=== PATIENT | male | born 1975 | race Hispanic/Latino ===

== ENCOUNTER 2017-10-15 07:43 | Inpatient (IN) | payer OTHER ==
[2017-10-15] MEDS ORDERED: Meropenem IV 1 gm in NS 100 ML IVPB STA (08:06)
[2017-10-15] MEDS ORDERED: Vancomycin 1gm in NS 250ml 1 GM/250 ML BAG IVPB STA (08:06)
[2017-10-15] MEDS ORDERED: Clindamycin 150 mg/mL Inj ONE (08:20)
[2017-10-15 08:34] LABS: VENOUS BLOOD GAS BASE EXCESS -3.6 mmol/L (0.0-2.0); VENOUS BLOOD GAS PO2 66 mm/Hg (30-55)
--- NOTE | 2017-10-15 08:42 | ED PDOC ---
Arrival/HPI - General Chief Complaint: Abnormal Skin Integrity Time Seen by Provider: 10/15/17 07:58 Historian: Patient - History of Present Illness Narrative History of Present Illness (Text): 10/15/17 08:20 42 year old male, who denies any significant past medical history, presents to the emergency department as an [place] men on the [place] [employer] the [employer] , complaining worsening left elbow calor, dolor, rubor, and tumor that began 2 days ago. He reports he noticed two red spots on the elbow and over the past 2 days he noticed progressive increase of calor, dolor, rubor, and tumor. Patient was not responding to Ibuprofen, nor one day PO Levofloxacin. Patient eventually developed nausea, fever, chills, and rigors, but denies any chest pain, shortness of breath, vomiting, diarrhea, urinary symptoms, back pain, neck pain, headache, dizziness, or any other complaints. Time/Duration: Other (2 days) Symptom Onset: Gradual Symptom Course: Worsening Activities at Onset: Light Context: Other (Cruise Ship) Past Medical History - Provider Review Nursing Documentation Reviewed: Yes - Infectious Disease Hx of Infectious Diseases: None - Psychiatric Hx Substance Use: No - Surgical History Hx Tonsillectomy: Yes Family/Social History - Physician Review Nursing Documentation Reviewed: Yes Family/Social History: No Known Family HX Smoking Status: Never Smoked Hx Alcohol Use: Yes Frequency of alcohol use: Socially Hx Substance Use: No Allergies/Home Meds Allergies/Adverse Reactions: Allergies No Known Allergies Allergy (Verified 10/15/17 08:05) Home Medications: Home Meds Medication Instructions Recorded Confirmed No Known Home Med 10/15/17 10/15/17 Review of Systems - Physician Review All systems were reviewed & negative as marked: Yes - Review of Systems Constitutional: Fevers, Other (Rigors and chills) Respiratory: absent: SOB Cardiovascular: absent: Chest Pain Gastrointestinal: Nausea. absent: Diarrhea, Vomiting Genitourinary Male: absent: Dysuria, Frequency, Hematuria Musculoskeletal: absent: Back Pain, Neck Pain Skin: Other (Left elbow calor, dolor, rubor, and tumor.) Neurological: absent: Headache, Dizziness Physical Exam Vital Signs Reviewed: Yes Vital Signs Temp Pulse Resp BP Pulse Ox 10/15/17 10:24 98.8 F 108 H 18 101/67 98 10/15/17 09:59 98.1 F 107 H 19 95/58 L 98 10/15/17 08:23 99.0 F 113 H 20 120/71 98 10/15/17 07:53 99.2 F 116 H 20 107/65 98 Temperature: Afebrile Blood Pressure: Normal Pulse: Tachycardic Respiratory Rate: Normal Appearance: Positive for: Well-Appearing, Non-Toxic, Comfortable Pain Distress: None Mental Status: Positive for: Alert and Oriented X 3 - Systems Exam Head: Present: Atraumatic, Normocephalic Pupils: Present: PERRL Extroacular Muscles: Present: EOMI Conjunctiva: Present: Normal Mouth: Present: Moist Mucous Membranes Neck: Present: Normal Range of Motion Respiratory/Chest: Present: Clear to Auscultation, Good Air Exchange. No: Respiratory Distress, Accessory Muscle Use Cardiovascular: Present: Regular Rate and Rhythm, Normal S1, S2. No: Murmurs Abdomen: No: Tenderness, Distention, Peritoneal Signs Back: Present: Normal Inspection Upper Extremity: Present: Tenderness (left elbow tender to touch), Swelling ( Grossly swollen forearm with rubor over forearm extending proximally over elbow , joint, and tricep area. ), Erythema, Neurovascularly Intact, Temperature Abnormalties (Postive relative Calor ), Other (Able to range but can not totally extend elbow). No: Cyanosis, Edema Lower Extremity: Present: Normal Inspection. No: Edema Neurological: Present: GCS=15, CN II-XII Intact, Speech Normal Skin: Present: Warm, Dry, Normal Color. No: Rashes Psychiatric: Present: Alert, Oriented x 3, Normal Insight, Normal Concentration Medical Decision Making ED Course and Treatment: 10/15/17 08:15 Impression: 42 year old male presents complaining of worsening left elbow calor, dolor, rubor, and tumor for the past 2 days. Patient also complaining of nausea, fever , chills, and rigors. Patient is an [place] on [place] [employer] [place]. Plan: -- VBG -- EKG -- Labs -- Chest X-ray -- Cleocin, IV Fluids, Merrem IV, Tylenol, Vancomycin -- Elbow left 2 views x-ray -- Urinalysis -- Duplex Upper extrem vein left US -- Reassess and disposition Progress Notes: 10/15/17 08:[address] Rosa who is aware and agrees with the plan. Accepts patient into his service. Pending lab and radiology work up. 10/15/17 08:59 Duplex Upper extrem vein left US Impression: Negative. 10/15/17 09:51 EKG shows Sinus tachycardia at 112 BPM with no ischemic ST/T segments. No arrhythmogenic intervals. Interpreted by me. - Lab Interpretations Lab Results: 10/15/17 08:10 Lab Results 10/15/17 08:10: pO2 66 H, VBG pH 7.40, VBG pCO2 33.0 L, VBG HCO3 20.4 L, VBG Total CO2 21.4 L, VBG O2 Sat (Calc) 96.3 H, VBG Base Excess -3.6 L, VBG Potassium 4.7, Sodium 135.0, Chloride 104.0, Glucose 143 H, Lactate 3.3 H, FiO2 21.0, Venous Blood Potassium 4.7 10/15/17 08:10: WBC 6.4, RBC 5.23, Hgb 16.5, Hct 46.1, MCV 88.1, MCH 31.5, MCHC 35.8, RDW 13.3, Plt Count 177, MPV 10.2, Gran % 93.3 H, Lymph % (Auto) 2.5 L, [place] % (Auto) 4.2, Eos % (Auto) 0.0 L, Baso % (Auto) 0.0, Gran # 6.00, Lymph # ( Auto) 0.2 L, [place] # (Auto) 0.3, Eos # (Auto) 0.0, Baso # (Auto) 0.00, Neutrophils % (Manual) 93 H, Band Neutrophils % 3 H, Lymphocytes % (Manual) 3 L , Monocytes % (Manual) 1, Platelet Evaluation Normal, Anisocytosis (manual) Slight, ESR 6 I have reviewed the lab results: Yes - RAD Interpretation Radiology Orders: 10/15/17 08:06 CHEST PORTABLE [RAD] Stat 10/15/17 08:11 ELBOW LEFT 3 VIEWS ROUTINE [RAD] Stat 10/15/17 08:12 DUPLEX UPPER EXTRM VEIN LEFT [US] Stat - EKG Interpretation Interpreted by ED Physician: Yes Type: 12 lead EKG - Medication Orders Current Medication Orders: Acetaminophen (Tylenol 325mg Tab) 975 mg PO ONCE PRN PRN Reason: Fever >100.4 F Discontinued Medications Clindamycin Phosphate 600 mg/ (Sodium Chloride) 54 mls @ 108 mls/hr IVPB STAT STA PRN Reason: Protocol Stop: 10/15/17 08:35 Last Admin: 10/15/17 08:25 Dose: 108 mls/hr eMAR Start Stop Document 10/15/17 08:25 OCS (Rec: 10/15/17 08:26 OCS [id number]) Intravenous Solution Start Date 10/15/17 Start Time 08:26 End Date 10/15/17 End time 08:56 Total Infusion Time 30 Lactated Ringer's 2,000 ml/ IV (SUPPLIES) 2,000 mls @ 7,506.06 mls/hr IV ONCE ONE PRN Reason: 60 ML/KG/HR Stop: 10/15/17 08:38 Last Admin: 10/15/17 08:24 Dose: 7,506.06 mls/hr eMAR Start Stop Document 10/15/17 08:24 OCS (Rec: 10/15/17 08:25 OCS [id number]) Intravenous Solution Start Date 10/15/17 Start Time 08:24 Meropenem (Merrem Iv 1 Gm Premix) 100 mls @ 100 mls/hr IVPB STAT STA PRN Reason: Protocol Stop: 10/15/17 09:05 Last Admin: 10/15/17 09:54 Dose: 100 mls/hr eMAR Start Stop Document 10/15/17 09:54 OCS (Rec: 10/15/17 10:00 OCS [id number]) Intravenous Solution Start Date 10/15/17 Start Time 10:00 End Date 10/15/17 End time 11:00 Total Infusion Time 60 Vancomycin HCl (Vancomycin 1gm) 1 gm in 250 mls @ 167 mls/hr IVPB STAT STA PRN Reason: Protocol Stop: 10/15/17 09:35 - Scribe Statement The provider has reviewed the documentation as recorded by the Korin Brown Provider Scribe Attestation: All medical record entries made by the Scribe were at my direction and personally dictated by me. I have reviewed the chart and agree that the record accurately reflects my personal performance of the history, physical exam, medical decision making, and the department course for this patient. I have also personally directed, reviewed, and agree with the discharge instructions and disposition. Disposition/Present on Arrival - Present on Arrival Any Indicators Present on Arrival: No History of DVT/PE: No History of Uncontrolled Diabetes: No Urinary Catheter: No History of Decub. Ulcer: No History Surgical Site Infection Following: None - Disposition Have Diagnosis and Disposition been Completed?: Yes Diagnosis: Cellulitis of left elbow Disposition: HOSPITALIZED Disposition Time: 10:37 Patient Plan: Admission Condition: GUARDED
[2017-10-15 08:43] LABS: GRAN % 93.3 % (50.0-68.0); HEMOGLOBIN 16.5 g/dL (14.0-18.0); LYMPH # 0.2 (1.2-3.4); LYMPH % 2.5 % (22.0-35.0); MEAN CELL VOLUME 88.1 fl (80.0-105.0); MEAN CORPUSCULAR HEMOGLOBIN 31.5 pg (25.0-35.0); MEAN CORPUSCULAR HGB CONC 35.8 g/dl (31.0-37.0); MEAN PLATELET VOLUME 10.2 fl (7.0-11.0); MONO # 0.3 (0.1-0.6); MONO % 4.2 % (1.0-6.0); PLATELET COUNT 177 10^3/uL (120.0-450.0); RBC 5.23 10^6/uL (3.5-6.1); RED CELL DISTRIBUTION WIDTH 13.3 % (11.5-14.5); WHITE BLOOD COUNT 6.4 10^3/ul (4.5-11.0)
[2017-10-15] MEDS ORDERED: Bupivacaine 0.5% Inj(30mL) ONE (09:22)
[2017-10-15 10:00] LABS: ALB/GLOB RATIO 1.3 (1.1-1.8); ALBUMIN 3.4 g/dL (3.0-4.8); ALT/SGPT 40 U/L (7-56); AST/SGOT 22 U/L (17-59); BLOOD UREA NITROGEN 16 mg/dL (7-21); CALCIUM 8.4 mg/dL (8.4-10.5); GFR AFRICAN-AMERICAN > 60; GFR NON-AFRICAN AMERICAN > 60
[2017-10-15 10:02] LABS: INR 1.4 (0.93-1.08); PARTIAL THROMBOPLASTIN TIME 31.4 Seconds (25.1-36.5); PROTHROMBIN TIME 16.2 SECONDS (9.4-12.5)
--- NOTE | 2017-10-15 10:07 | RAD ---
HISTORY: Sepsis Patient COMPARISON: No prior. FINDINGS: LUNGS: No active pulmonary disease. PLEURA: No significant pleural effusion identified, no pneumothorax apparent. CARDIOVASCULAR: Normal. OSSEOUS STRUCTURES: No significant abnormalities. VISUALIZED UPPER ABDOMEN: Normal. OTHER FINDINGS: None. IMPRESSION: No active disease.
[2017-10-15 10:10] LABS: TROPONIN I < 0.01 ng/mL
--- NOTE | 2017-10-15 10:18 | RAD ---
PROCEDURE: Radiographs of the left elbow. HISTORY: soft tissue infection COMPARISON: No prior. FINDINGS: BONES: Normal. No fracture. JOINTS: Normal. No osteoarthritis. SOFT TISSUES: Normal. JOINT EFFUSION: None. OTHER FINDINGS: None IMPRESSION: Unremarkable radiographs of the left elbow.
[2017-10-15 10:31] LABS: BAND 3 % (0-2); LYMPHOCYTE 3 % (22.0-35.0); MONOCYTE 1 % (1.0-6.0); NEUTROPHIL 93 % (50.0-70.0); PLATELET ESTIMATE NORMAL (NORMAL)
[2017-10-15 10:32] LABS: ANISOCYTOSIS SLIGHT
--- NOTE | 2017-10-15 10:49 | US ---
PROCEDURE: Ultrasound examinations soft tissue, limited HISTORY: lt elbow pls; ext of cellultis r/o fld collection COMPARISON: Not available TECHNIQUE: Targeted examination of the left upper extremity soft tissues was performed about the elbow and distal upper arm, circumferentially. FINDINGS: There is no solid mass or fluid collection identified. Subcutaneous edema is identified common nonspecific. IMPRESSION: No mass or fluid collection identified.
--- NOTE | 2017-10-15 11:35 | HP ---
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 He is here in our emergency room. He was supposed to go home, but he is now in the ER with a very bad left elbow quite swollen, decreased range of motion. It started off with two red spots, could have been insect bite. He was given IV antibiotics, both Rocephin and levofloxacin, but I do not think it did much to red, inflamed. It is a mild pain, not bad. He is uncomfortable and he needs to be put in the hospital for this. PAST MEDICAL HISTORY: He does not have any. PAST SURGICAL HISTORY: He has wisdom tooth taken out. SOCIAL HISTORY: He does drink alcohol. No smoking. No recreational drugs. Does drink coffee. FAMILY HISTORY: No major family medical history to discuss. ALLERGIES: HE HAS NO KNOWN DRUG ALLERGIES. MEDICATIONS: Does not take any medications and this is the first time he has been dealing with left elbow issue. REVIEW OF SYSTEMS: No acute vision changes or hearing changes. No sore throat. No neck pain. No chest pain or palpitations. No shortness of breath or cough. No abdominal pain, nausea, vomiting, constipation, or diarrhea. His legs were okay. His left elbow is very swollen, very hot, very red, decreased range of motion. PHYSICAL EXAMINATION: VITAL SIGNS: He has a 99.2 temperature, 116 pulse, 107/65 blood pressure, 20 respiratory rate, 90% O2 sat on room air. HEENT: Head is atraumatic and normocephalic. Throat is dry. NECK: Supple. HEART: Regular rate, LUNGS: Decreased breath sounds, but clear to auscultation. ABDOMEN: Soft. Mildly obese. Nontender. Positive bowel sounds. No guarding and no rebound. No CVA tenderness. EXTREMITIES: No edema. The left elbow though was quite swollen, decreased range of motion, hot to touch, mildly tender to palpation, very red and inflamed. I do not see the 2 dots that he mentioned he had originally, which I think could be spider bite versus insect bites. It looks like the elbow is very infected and I do not want to get septic. He should be admitted to the hospital. He will get clindamycin. He will get Merrem. Add vancomycin and Tylenol. I will consult Infectious Disease and Orthopedics. He is going to be put in the hospital for infected left elbow. Marcel Rosa DO
--- NOTE | 2017-10-15 12:02 | US ---
PROCEDURE: Left upper extremity venous ultrasound HISTORY: Arm pain and swelling. Evaluate for deep venous thrombosis. PHYSICIAN(S): Yuri Dey MD. FINDINGS: The visualized leftinternal jugular vein is sonographically normal and compressible. No evidence of obstruction or thrombus is seen. The visualized segments of the left subclavian vein are patent with normal waveforms. No sonographic evidence of obstruction or thrombosis is seen. The visualized deep venous system of the proximal leftupper extremity is sonographically normal and compressible. IMPRESSION: 1. No sonographic evidence for deep venous thrombosis in the visualized segments of the left upper extremity.
[2017-10-15 12:07] LABS: VENOUS BLOOD GAS BASE EXCESS -2.7 mmol/L (0.0-2.0); VENOUS BLOOD GAS PO2 27 mm/Hg (30-55); VENOUS BLOOD PH 7.36 (7.32-7.43)
[2017-10-15] MEDS: Cefepime 1gm in NS 100ml 1 GM/100 ML BAG IVPB SCH ×3 (12:10→22:30)
[2017-10-15] MEDS: Linezolid 600 mg in D5W 300 ml 600 MG/300 ML BAG IVPB SCH (12:11)
[2017-10-15 12:47] LABS: URINE BILIRUBIN NEGATIVE (NEGATIVE); URINE BLOOD NEGATIVE (NEGATIVE); URINE GLUCOSE (UA) NEGATIVE (NEGATIVE); URINE LEUKOCYTE ESTERASE NEGATIVE Leu/uL (NEGATIVE); URINE PROTEIN 30 mg/dL (<30 mg/dL)
[2017-10-15 12:52] LABS: URINE APPEARANCE CLEAR (CLEAR); URINE COLOR DARK YELLOW (YELLOW)
[2017-10-15 13:01] LABS: URINE EPITHELIAL CELLS 0 - 2 /hpf (0-5); URINE RBC 0 - 2 /hpf (0-2)
[2017-10-15 13:02] LABS: URINE BACTERIA FEW (NEG)
[2017-10-15 16:52] VITALS: BMI 36.3
[2017-10-15] MEDS ORDERED: Pneumococcal 23-Valent Vaccine IM ONE (16:52)
--- NOTE | 2017-10-15 20:59 | CON ---
DATE: 10/15/2017 ORTHOPEDIC CONSULTATION The patient is a 42-year-old male seen in the Emergency Room with acutely swollen left elbow at the olecranon bursa. History is that he was bitten by two bugs while on a cruise ship coming back to [place]. This happened two days ago and the elbow started to have increasing pain and swelling along the olecranon bursa. X-rays were within normal limits of the left elbow and no appearance of fluid in the elbow joint, looks like it is in the olecranon bursa. So, I prepped and draped the left elbow, numbed it up with some Marcaine in the dermis and put an 18 gauge needle in over the fluctuant portion and got out some purulent material about 2 mL, which I sent to the lab for culture and I irrigated out with normal saline to dilute the purulent material that was difficult to take out even though it was a 18 gauge needle so I put a dressing on and I will follow the culture and the elbow status to make sure it does not have to be opened. If this infection is not controlled with antibiotics, we may have to do an I&D, but it looks like we could get through once the culture shows what is the sensitive antibiotic. He is being admitted for IV antibiotics. He is on clindamycin right now and was put on, in the Emergency Room, vancomycin and we will get an ID consult. FINAL DIAGNOSES: Purulent infection of left olecranon bursa with cellulitis and we did aspiration of the olecranon bursa to remove the purulent material and irrigated it with normal saline. Octaviano Paulson DO MARÍA
[2017-10-16] MEDS: Cefepime 1gm in NS 100ml 1 GM/100 ML BAG IVPB SCH (05:23)
[2017-10-16] MEDS ORDERED: Meropenem IV 1 gm in NS 50 ML IVPB SCH ×3 (08:15→14:00)
[2017-10-16 08:34] LABS: HEMOGLOBIN 17.2 g/dL (14.0-18.0); MEAN CELL VOLUME 89.2 fl (80.0-105.0); MEAN CORPUSCULAR HEMOGLOBIN 31.4 pg (25.0-35.0); MEAN CORPUSCULAR HGB CONC 35.2 g/dl (31.0-37.0); MEAN PLATELET VOLUME 9.8 fl (7.0-11.0); RBC 5.48 10^6/uL (3.5-6.1); RED CELL DISTRIBUTION WIDTH 13.7 % (11.5-14.5); WHITE BLOOD COUNT 12.5 10^3/ul (4.5-11.0)
[2017-10-16] MEDS ORDERED: Lactated Ringer's 1,000 ML IV SCH (08:45)
[2017-10-16 08:50] LABS: ALB/GLOB RATIO 1.3 (1.1-1.8); ALBUMIN 3.9 g/dL (3.0-4.8); ALT/SGPT 52 U/L (7-56); AST/SGOT 36 U/L (17-59); BLOOD UREA NITROGEN 14 mg/dL (7-21); CALCIUM 8.7 mg/dL (8.4-10.5); GFR AFRICAN-AMERICAN > 60; GFR NON-AFRICAN AMERICAN > 60
[2017-10-16] MEDS ORDERED: Iohexol 350 MG/100 ML VIAL ONE (08:52)
--- NOTE | 2017-10-16 09:01 | CP.PCM.CON ---
History of Present Illness - History of Present Illness History of Present Illness: General Surgery: Dr Fitzpatrick Re: r/o necrotizing fasciitis Pt is a 42M who presented with left arm pain/swelling since tuesday. Pt reports he was recently on a cruise which traveled from [place] to the [facility] and back. On tuesday, the day of his return, he was packing when he noticed pain in his left elbow and noted it to be swollen. At that time he identified two small punctate lesions on his elbow. The arm began to get progressively more swollen and tuesday he night pt reports he was feeling fevers and chills. He was seen by the on board physician who sent him to the [facility] for further evaluation. Pt was seen by orthopaedics yesterday who aspirated the left elbow which pt reports provided some relief. However overnight the erythema and swelling has now extended to the brachial portion of his left arm. Pt reports he continues to feel feverish and now feels lethargic. His qwaxv-ic-suovme has significantly decreased as well. PMH: denies PSH: denies Review of Systems - Review of Systems Systems not reviewed;Unavailable: Acuity of Condition (per hpi) All systems: reviewed and no additional remarkable complaints except Past Patient History - Infectious Disease Hx of Infectious Diseases: None - Past Social History Smoking Status: Never Smoked - CARDIAC Hx Cardiac Disorders: No - PULMONARY Hx Respiratory Disorders: No - NEUROLOGICAL Hx Neurological Disorder: No - HEENT Hx HEENT Problems: Yes (TONSILLECTOMY) - RENAL Hx Chronic Kidney Disease: No - ENDOCRINE/METABOLIC Hx Endocrine Disorders: No - HEMATOLOGICAL/ONCOLOGICAL Hx Blood Disorders: No - INTEGUMENTARY Hx Dermatological Problems: Yes Other/Comment: 10-15-17 LEFT ELBOW CELLULITIS-INSECT BITE?- NOTICED 2 RED SPOTS TO ELBOW,STARTED ITCHING,THEN SWELLED UP + 3 EDEMA,ERYTHEMATOUS AREA,ELBOW REDDENED. PAIN. - MUSCULOSKELETAL/RHEUMATOLOGICAL Hx Musculoskeletal Disorders: No Hx Falls: No - GASTROINTESTINAL Hx Gastrointestinal Disorders: No - GENITOURINARY/GYNECOLOGICAL Hx Genitourinary Disorders: No - PSYCHIATRIC Hx Psychophysiologic Disorder: Yes (SOCIALLY DRINKS ALCOHOL) Hx Substance Use: No - SURGICAL HISTORY Hx Surgeries: Yes (TONSILLECTOMY) Meds Allergies/Adverse Reactions: Allergies Allergy/AdvReac Type Severity Reaction Status Date / Time No Known Allergies Allergy Verified 10/15/17 14:31 - Medications Medications: Current Medications Acetaminophen (Tylenol 325mg Tab) 975 mg PO ONCE PRN PRN Reason: Fever >100.4 F Last Admin: 10/15/17 16:44 Dose: 975 mg Linezolid (Zyvox 600mg/300ml D5w) 600 mg in 300 mls @ 200 mls/hr IVPB Q12 SANTOS PRN Reason: Protocol Stop: 10/22/17 11:11 Last Admin: 10/15/17 12:11 Dose: 200 mls/hr Meropenem (Merrem Iv 1 Gm Premix) 50 mls @ 100 mls/hr IVPB Q8 SANTOS PRN Reason: Protocol Meropenem (Merrem Iv 1 Gm Premix) 50 mls @ 100 mls/hr IVPB Q8 SANTOS PRN Reason: Protocol Stop: 10/17/17 06:29 Lactated Ringer's (Lactated Ringer's) 1,000 mls @ 100 mls/hr IV .Q10H SANTOS Physical Exam - Constitutional Appears: Non-toxic, No Acute Distress - Head Exam Head Exam: NORMOCEPHALIC - Eye Exam Eye Exam: Normal appearance - ENT Exam ENT Exam: Mucous Membranes Dry - Respiratory Exam Respiratory Exam: absent: Accessory Muscle Use, Respiratory Distress - Cardiovascular Exam Cardiovascular Exam: Tachycardia, REGULAR RHYTHM - GI/Abdominal Exam GI & Abdominal Exam: Soft. absent: Tenderness - Extremities Exam Additional comments: LUE is erythematous, warm to touch, edematous with significant blanching, extends to upper portion of the biceps and down to the hands no crepitus noted Results - Vital Signs Recent Vital Signs: Last Vital Signs Temp 99.4 F 10/16/17 06:00 Pulse 107 H 10/16/17 06:00 Resp 19 10/16/17 06:00 BP 111/73 10/16/17 06:00 Pulse Ox 100 10/16/17 06:00 - Labs Result Diagrams: 10/16/17 08:00 10/16/17 08:00 Labs: Laboratory Results - last 24 hr 10/15/17 10/15/17 10/15/17 09:30 09:40 09:40 WBC RBC Hgb Hct MCV MCH MCHC RDW Plt Count MPV PT 16.2 H INR 1.40 H APTT 31.4 pO2 VBG pH VBG pCO2 VBG HCO3 VBG Total CO2 VBG O2 Sat (Calc) VBG Base Excess VBG Potassium Glucose Lactate FiO2 Sodium 137 Potassium 3.6 Chloride 106 Carbon Dioxide 18 L Anion Gap 16 BUN 16 Creatinine 0.9 Est GFR ( Amer) > 60 Est GFR (Non-Af Amer) > 60 Random Glucose 129 H Calcium 8.4 Phosphorus 2.6 Magnesium 1.3 L Total Bilirubin 1.8 H AST 22 ALT 40 Alkaline Phosphatase 30 L Troponin I < 0.01 C-React Prot High Sens > 15.00 H Total Protein 5.8 Albumin 3.4 Globulin 2.5 Albumin/Globulin Ratio 1.3 Venous Blood Potassium Urine Color Urine Appearance Urine pH Ur Specific [place] Urine Protein Urine Glucose (UA) Urine Ketones Urine Blood Urine Nitrate Urine Bilirubin Urine Urobilinogen Ur Leukocyte Esterase Urine RBC Urine WBC Ur Epithelial Cells Urine Bacteria 10/15/17 10/15/17 10/16/17 12:02 12:40 08:00 WBC 12.5 H D RBC 5.48 Hgb 17.2 Hct 48.9 MCV 89.2 MCH 31.4 MCHC 35.2 RDW 13.7 Plt Count 113 L MPV 9.8 PT INR APTT pO2 27 L VBG pH 7.36 VBG pCO2 40.0 VBG HCO3 22.6 VBG Total CO2 23.8 VBG O2 Sat (Calc) 59.2 VBG Base Excess -2.7 L VBG Potassium 3.6 Glucose 139 H Lactate 3.4 H FiO2 21.0 Sodium 136.0 Potassium Chloride 103.0 Carbon Dioxide Anion Gap BUN Creatinine Est GFR ( Amer) Est GFR (Non-Af Amer) Random Glucose Calcium Phosphorus Magnesium Total Bilirubin AST ALT Alkaline Phosphatase Troponin I C-React Prot High Sens Total Protein Albumin Globulin Albumin/Globulin Ratio Venous Blood Potassium 3.6 Urine Color Dark yellow Urine Appearance Clear Urine pH 6.0 Ur Specific [place] 1.020 Urine Protein 30 H Urine Glucose (UA) Negative Urine Ketones Trace H Urine Blood Negative Urine Nitrate Positive H Urine Bilirubin Negative Urine Urobilinogen 1.0 H Ur Leukocyte Esterase Negative Urine RBC 0 - 2 Urine WBC 1 - 3 Ur Epithelial Cells 0 - 2 Urine Bacteria Few 10/16/17 08:00 WBC RBC Hgb Hct MCV MCH MCHC RDW Plt Count MPV PT INR APTT pO2 VBG pH VBG pCO2 VBG HCO3 VBG Total CO2 VBG O2 Sat (Calc) VBG Base Excess VBG Potassium Glucose Lactate FiO2 Sodium 138 Potassium 4.0 Chloride 102 Carbon Dioxide 22 Anion Gap 18 BUN 14 Creatinine 0.9 Est GFR ( Amer) > 60 Est GFR (Non-Af Amer) > 60 Random Glucose 133 H Calcium 8.7 Phosphorus Magnesium Total Bilirubin 1.8 H AST 36 ALT 52 Alkaline Phosphatase 40 Troponin I C-React Prot High Sens Total Protein 6.9 Albumin 3.9 Globulin 3.0 Albumin/Globulin Ratio 1.3 Venous Blood Potassium Urine Color Urine Appearance Urine pH Ur Specific [place] Urine Protein Urine Glucose (UA) Urine Ketones Urine Blood Urine Nitrate Urine Bilirubin Urine Urobilinogen Ur Leukocyte Esterase Urine RBC Urine WBC Ur Epithelial Cells Urine Bacteria Assessment & Plan - Assessment and Plan (Free Text) Assessment: 42M with LUE cellulitis, possibly s/p spider bite; r/o nec fasc Plan: NPO in case debridement is needed will start on IV fluids stat CT scan of LUE will f/u results and d/w Dr Amari Rdz, PGY3
--- NOTE | 2017-10-16 09:11 | CARD ---
APPROVED REPORT EKG Measurement Heart [id number] ME [id number] <Conclusion> Sinus tachycardia Nonspecific ST abnormality Mild ST elevation 2,3,F Small q waves 3,F Cannot exclude IMI, age unknown No prior ECG.
--- NOTE | 2017-10-16 10:00 | CT ---
PROCEDURE: CT Chest without contrast HISTORY: r/o necrotizing fascitis COMPARISON: None. TECHNIQUE: Contiguous axial images were obtained through the chest without intravenous contrast enhancement. Sagittal and coronal reconstructions were performed. Radiation dose (DLP): 878.65 mGy-cm. This CT exam was performed using one or more of the following dose reduction techniques: Automated exposure control, adjustment of the mA and/or kV according to patient size, and/or use of iterative reconstruction technique. FINDINGS: LUNGS: Bilateral lower lobe linear scar/ atelectasis. No infiltrate. No pulmonary mass. MEDIASTINUM: Unremarkable thoracic aorta. No aneurysm. Normal sized heart. Main pulmonary artery unremarkable. No vascular congestion. No lymphadenopathy. PLEURA: No pleural fluid. No pneumothorax. BONES: No fracture. No destructive lesion. UPPER ABDOMEN: Grossly unremarkable. OTHER FINDINGS: None. IMPRESSION: Unremarkable non-contrast enhanced CT of the chest.
[2017-10-16] MEDS ORDERED: Morphine 2 mg/ml ISec IVP PRN (10:31)
[2017-10-16] MEDS: Linezolid 600 mg in D5W 300 ml 600 MG/300 ML BAG IVPB SCH ×2 (11:11→21:49)
[2017-10-16] MEDS: Sodium Chloride 0.45% 1,000 ML IV SCH (11:12)
--- NOTE | 2017-10-16 11:36 | CT ---
PROCEDURE: CT left upper extremity HISTORY: r/o necrotizing fasc COMPARISON: Not available TECHNIQUE: 2.5 mm contiguous axial sections were acquired through left upper extremity from the shoulder through the hand, both with and without intravenous contrast administration. Sagittal and coronal images were reformatted from the axial scan. FINDINGS: There is no osseous fracture. There is no periosteal reaction or osseous erosion appreciated. There is extensive subcutaneous edema/inflammation predominantly along the ulnar aspect of the forearm, from the elbow to the wrist, with increased attenuation of the subcutaneous fat and cutaneous thickening. There are also bubbles of gas seen within the subcutaneous soft tissues in the affected area, raising the possibility of infection with a gas producing organism. No lisette abscess is appreciated. IMPRESSION: Probable cellulitis of the left forearm with bubbles of subcutaneous gas within the affected region, raising the possibility of infection with a gas producing organism. No evidence of abscess. No underlying osseous abnormality appreciated.
[2017-10-16] MEDS ORDERED: Magnesium Sulfate 1 gm in D5W 1 GM/100 ML BAG IVPB ONE (14:32)
--- NOTE | 2017-10-16 14:39 | PN ---
DATE: 10/16/2017 SUBJECTIVE: I saw him resting comfortably in bed this morning. His left arm is little bit more swollen than it was in the Emergency Room, did have a needle put in the elbow, then aspirate and sent out for culture by Orthopedics. I will call in Surgery because of the swelling. We will keep it elevated. I will give him oxygen. He is on IV Merrem and IV Zyvox. He was also given clindamycin and vancomycin in the ER. He is a little bit more swollen today than yesterday, a little bit more red, hopefully this will subside in the next 24 to 48 hours. PHYSICAL EXAMINATION VITAL SIGNS: He has a 99.4 temperature, temperature can go as high as 102.8, but it came down to 99.4 now, 107 pulse, 111/70 blood pressure, 19 respiratory rate, 100% O2 sat on room air. HEENT: His head is atraumatic, normocephalic. HEART: Regular rate. LUNGS: Decreased breath sounds, but clear. ABDOMEN: Soft, nontender. Positive bowel sounds. EXTREMITIES: The legs were okay. His left arm is swollen, the redness had gone to the hands. I will elevate the arm. MEDICATIONS: He will have Motrin added to his Tylenol. LABORATORY DATA: He has 12.5 white count, 17.2 hemoglobin, 48.9 hematocrit with the 113 platelets. Lactate 3.4. His sodium is 138, potassium is 4, BUN is 40, creatinine 0.9. GFR is greater than 60. Sugar is 133, calcium is 8.7. Total bili is 1.8, AST is 36, ALT is 52, alkaline phosphatase 40, troponin is less than 0.01, 6.9 total protein. So far, no growth in the blood. I am waiting for body fluid culture, it is pending, being seen by Ortho, Infectious Disease and Surgery. CAT scan of the chest is okay. Waiting CAT scan of the left arm. We will continue aggressive treatment and care. We will put him on some pain medications, just in case he needs it. He is here for cellulitis of the left elbow. He is from [place] on a cruise ship. Marcel Rosa, DO
--- NOTE | 2017-10-16 19:10 | CON ---
DATE: 10/16/2017 LOCATION: The patient is seen early this morning in room 377, bed 2. CHIEF COMPLAINT: Left arm pain x2 days duration. HISTORY OF PRESENT ILLNESS: This is a 42-year-old male with no significant past medical history except for obesity with a BMI of 36 and who is in a cruise ship and originally from [place] and he was on a [place] cruise, he noticed small two dots on his left elbow 2 days ago and sought medical care on the ship and was given some medication, he does not know what. He states that since last 24-48 hours his arm has gotten progressively worse. He is having fevers and he has no chest pain. There is no shortness of breath. No neck pain. No abdominal pain, diarrhea or constipation. No headaches or blurred vision. No trauma to the elbow. PAST MEDICAL HISTORY: Noncontributory. REVIEW OF SYSTEMS: Reveal there is no symptoms, no GI symptoms, no pulmonary symptoms, no YEAST TENDER symptoms and no other joint involvement and no weight loss and appetite is fine. PAST SURGICAL HISTORY: Significant for tonsillectomy and wisdom tooth removal as a child. ALLERGIES: HE HAS NO KNOWN ALLERGIES. MEDICATIONS: He takes no medication. SOCIAL HISTORY: He is . He has children. 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 PHYSICAL EXAMINATION GENERAL: The patient is in bed, answering questions appropriately. VITAL SIGNS: Temperature of 99, T-max was 102.8 with a blood pressure is 88/50 and respiratory rate of 19 with heart rate of 105. HEENT: Unremarkable. NECK: Supple. LUNGS: Have decreased breath sounds. HEART: Normal S1 and S2. ABDOMEN: Soft, nontender. No rebound, no guarding, no masses. EXTREMITIES: Examination of the left arm reveals significant edema of the entire arm with erythema of the entire arm. There is erythema that extends down and up his arms, some extends back of his chest and lymph nodes are not palpated and on evaluation of the elbow and no obvious open klein and no discharge. The pulses are intact. He is able to move his arm somewhat, however, he is obviously in significant pain. LABORATORY DATA: Reveals a white count is 6.4, hemoglobin of 16, platelets of 177, 93% granulocytosis and sed rate is 6, coagulation is INR of 1.4 and blood gases are reviewed. Chemistries reveal the patient's C-reactive protein is greater than 15, procalcitonin is 16.5, BUN of 16, creatinine of 0.8, carbon oxide is 18. Urinalysis is noted, he does have 30 protein in the urine, trace ketones and positive nitrites and his blood sugar is 129. The patient also had an ultrasound of his arm. History and physical examination by Dr. Marcel Rosa is noted. The ultrasound does not show any mass collection. X-ray of the elbow is also negative. Chest x-ray is also negative. ASSESSMENT AND PLAN: A 42-year-old male with obesity with fever and tachycardia, infected arm and acidotic with severe sepsis with hypotension with a left elbow olecranon bursa and left arm cellulitis and we will must rule out necrotizing fasciitis and diabetic ketoacidosis. We will order antibiotics which was initially started by me yesterday in the form of Zyvox and meropenem. We will order a stat CAT scan of the arm and chest, stat surgical consultation and CPK. We will check on the panculture results. We will order an human immunodeficiency virus because of his age. I will make further recommendations. Case discussed with Dr. Marcel Rosa this morning, nursing care, nursing staff and surgical residents and Dr. Alcon Fitzpatrick and message for him is left and we will follow closely with you, pending CAT scan, whatley cultures and initial response. Patric Alves MD
[2017-10-16] MEDS: Morphine 2 mg/2 mL syringe IVP PRN (19:46)
[2017-10-16] MEDS: Meropenem IV 1 gm in NS 50 ML IVPB SCH (23:34)
--- NOTE | 2017-10-17 04:03 | CON ---
DATE: 10/16/2017 HISTORY OF PRESENT ILLNESS: So, this patient about 10 o'clock this morning because of cellulitis having come [place] the cruise ship with a swollen left arm with pain. He had a considerable amount of pain. The arm was swollen to the hand, then up to the shoulder. It was recently marked. White count initially was normal, increased to 12.5, lactate 3.4, bilirubin 1.8, glucose 133. C-reactive protein 15, high. CAT scan was reviewed showing cellulitis. We got an abscess and some gas bubbles in the subcutaneous tissue. This I believe was the site where Dr. Paulson this afternoon had aspirated and is not the issue. PHYSICAL EXAMINATION: GENERAL: Today at 8 'clock, the arm is swollen as before. I believe it is a little bit less swollen in the hand. It is red. The jorden on the upper part of the arm is pretty much stable since about 10 o'clock this morning. He can move it around, but it is and swollen, but he can move all joints. He is not tender. It is swollen, not tense. Neurovascularly otherwise intact. I think it is a bad cellulitis. We will follow him closely, but I do not think this is drainable infection and I do not think this is necrotizing fasciitis. I will see again in the morning. Alcon Fitzpatrick MD
[2017-10-17] MEDS: Meropenem IV 1 gm in NS 50 ML IVPB SCH ×3 (05:07→21:26)
[2017-10-17] MEDS: Morphine 2 mg/2 mL syringe IVP PRN (06:34)
[2017-10-17 07:26] LABS: MEAN CELL VOLUME 87.2 fl (80.0-105.0); MEAN CORPUSCULAR HEMOGLOBIN 30.9 pg (25.0-35.0); MEAN CORPUSCULAR HGB CONC 35.4 g/dl (31.0-37.0); MEAN PLATELET VOLUME 9.8 fl (7.0-11.0); RBC 4.44 10^6/uL (3.5-6.1); RED CELL DISTRIBUTION WIDTH 13.5 % (11.5-14.5); WHITE BLOOD COUNT 13.8 10^3/ul (4.5-11.0)
[2017-10-17 07:29] LABS: HEMOGLOBIN 13.7 g/dL (14.0-18.0)
--- NOTE | 2017-10-17 07:36 | CP.PCM.PN ---
Subjective - Date & Time of Evaluation Date of Evaluation: 10/17/17 Time of Evaluation: 07:34 - Subjective Subjective: Patient seen and examined at bedside. Per nursing no acute events occurred overnight. Patient report an improvement in hand swelling. Patient able to move left extremity better today. Patient denies any fevers, chills, nausea, vomiting or any other complaints. Objective - Vital Signs/Intake and Output Vital Signs (last 24 hours): Temp Pulse Resp BP Pulse Ox 99.6 F 106 H 19 99/57 L 95 10/17/17 06:00 10/17/17 06:00 10/17/17 06:00 10/17/17 06:00 10/17/17 06:00 Intake and Output: 10/17/17 10/17/17 06:59 18:59 Intake Total 1820 Balance 1820 - Medications Medications: Current Medications Acetaminophen (Tylenol 325mg Tab) 975 mg PO ONCE PRN PRN Reason: Fever >100.4 F Last Admin: 10/15/17 16:44 Dose: 975 mg Acetaminophen (Tylenol 325mg Tab) 650 mg PO Q4H PRN PRN Reason: Temp > 99.9 Last Admin: 10/17/17 06:34 Dose: 650 mg Linezolid (Zyvox 600mg/300ml D5w) 600 mg in 300 mls @ 200 mls/hr IVPB Q12 SANTOS PRN Reason: Protocol Stop: 10/22/17 11:11 Last Admin: 10/16/17 21:49 Dose: 200 mls/hr Sodium Chloride (Sodium Chloride 0.45%) 1,000 mls @ 30 mls/hr IV .Q24H SANTOS Last Admin: 10/16/17 11:12 Dose: 30 mls/hr Meropenem (Merrem Iv 1 Gm Premix) 50 mls @ 100 mls/hr IVPB Q8 SANTOS PRN Reason: Protocol Stop: 10/25/17 22:01 Last Admin: 10/17/17 05:07 Dose: 100 mls/hr Ibuprofen (Motrin Tab) 400 mg PO Q6H PRN PRN Reason: Swelling Last Admin: 10/17/17 00:14 Dose: 400 mg Morphine Sulfate (Morphine) 1 mg IVP Q4H PRN PRN Reason: Pain, moderate (4-7) Last Admin: 10/17/17 06:34 Dose: 1 mg - Labs Labs: 10/17/17 06:30 10/16/17 08:00 PT 16.2 SECONDS (9.4-12.5) H 10/15/17 09:40 INR 1.40 (0.93-1.08) H 10/15/17 09:40 APTT 31.4 Seconds (25.1-36.5) 10/15/17 09:40 - Head Exam Head Exam: ATRAUMATIC, NORMAL INSPECTION, NORMOCEPHALIC - Eye Exam Eye Exam: EOMI, Normal appearance Pupil Exam: NORMAL ACCOMODATION - ENT Exam ENT Exam: Mucous Membranes Moist - Respiratory Exam Respiratory Exam: Clear to Ausculation Bilateral, NORMAL BREATHING PATTERN - Cardiovascular Exam Cardiovascular Exam: REGULAR RHYTHM - GI/Abdominal Exam GI & Abdominal Exam: Soft, Normal Bowel Sounds - Neurological Exam Neurological Exam: Alert, Awake - Psychiatric Exam Psychiatric exam: Normal Affect, Normal Mood - Skin Skin Exam: Dry, Intact Assessment and Plan - Assessment and Plan (Free Text) Assessment: 42M with LUE cellulitis, possibly s/p spider bite; r/o nec fasc Plan: -Cont IV fluids -Cont IV antibiotics -Pain management -Will continue to monitor. Will discuss with Dr. Fitzpatrick.
[2017-10-17 07:48] LABS: ALB/GLOB RATIO 1.1 (1.1-1.8); ALBUMIN 3.1 g/dL (3.0-4.8); ALT/SGPT 44 U/L (7-56); AST/SGOT 22 U/L (17-59); BLOOD UREA NITROGEN 12 mg/dL (7-21); CALCIUM 8.4 mg/dL (8.4-10.5); GFR AFRICAN-AMERICAN > 60; GFR NON-AFRICAN AMERICAN > 60
[2017-10-17] MEDS ORDERED: Potassium Chloride 20 mEq ER Tab PO ONE (08:24)
[2017-10-17] MEDS: Linezolid 600 mg in D5W 300 ml 600 MG/300 ML BAG IVPB SCH ×2 (09:05→21:26)
[2017-10-17] MEDS: Sodium Chloride 0.45% 1,000 ML IV SCH ×2 (10:36→22:24)
[2017-10-17] MEDS ORDERED: TDAP Vaccine 0.5 mL Syr IM ONE (11:54)
[2017-10-17] MEDS: Enoxaparin 40 mg Syringe SC SCH (12:27)
--- NOTE | 2017-10-17 13:06 | PN ---
worse then yesterday DATE: The patient came in to the hospital on 10/15/2017 with a cellulitis of his left upper extremity, mainly the forearm and elbow, with a pocket of palpable ballottement of fluid in the olecranon bursa, which was aspirated of purulent fluid no more then 1 cc_and sent for culture. yesterday the cultur grew outStreptococcus pyogenes, now hopefully we will wait for the sensitivity to come back, but because of the antibiotics, he is feeling much better today and that he has much less pain. He can move the elbow a little better. In the hand, he does have swelling which is just as much as yesterday, but we are going to measure it, and hopefully, the antibiotics improve his cellulitis and swelling should come down. So, I measured it today and will compare it tomorrow. Palpation of the left upper extremity shows no evidence of crepitus. No spots of tenderness for any suggestion of an abscess. Does not appear to be any worse then yesterday and no need for I and D just yet, and hopefully warm compresses will increase the inflow of blood with the antibiotics to help his symptoms of cellulitis. It is still in the forearm, then that arm, and then the hand, but there is no sign of abscess formation just yet. I palpated the olecranon and it did not appear to hurt him or there is no induration; just soft subcutaneous tissues, but without crepitus, so I will follow him closely. Octaviano Paulson DO MARÍA
--- NOTE | 2017-10-17 14:16 | PN ---
DATE: SUBJECTIVE: I saw Hood getting out of bed to chair. His left arm is and bandaged with a warming blanket. His father is with him. He is comfortable. He tells me he feels maybe a smidgen better. I thought it looked swollen and red, not much of a change, but not much worse than yesterday. He is on IV fluids. I have to replace the potassium, Merrem IV, morphine for pain, ibuprofen for the swelling and pain, Tylenol and Zyvox. PHYSICAL EXAMINATION GENERAL: He is alert and talking. VITAL SIGNS: He has a 99.6 temp, T max was 101.2, so may be it is coming down a little bit. Pulse is 106, 99/57 blood pressure, 19 respiratory rate, 95% O2 sat on room air. HEENT: His head is atraumatic and normocephalic. HEART: Regular rate. LUNGS: Decreased breath sounds, but clear. ABDOMEN: Soft, obese, nontender. EXTREMITIES: The feet are okay. The left arm is quite swollen, puffy and red. I do not think it is spread, but it does go from the finger tips to the shoulder. LABORATORY DATA: He has a 138 sodium; potassium is 3.4, replace the potassium. BUN 12, creatinine 0.9. GFR is greater than 60. Sugar is 109. Calcium is 8.4, total bili is 1.4, AST is 22, ALT is 44, alkaline phosphatase 59, total protein is 5.9. Urine was negative. Lactate was 3.3, then 3.4. He has white count so far, hemoglobin is 13.7, hematocrit 38.7, platelets of 143. ASSESSMENT AND PLAN: We will check his labs tomorrow, get him out of bed to chair, replace the potassium, IV antibiotics as per Infectious Disease. So far, it is a very bad cellulitis, possibilities of gas under the arm as CAT scan said that, so we will watch that. Continue aggressive treatment and care. Marcel Rosa DO [facility] MEDICAL CENTERLucy
--- NOTE | 2017-10-17 19:23 | CP.PCM.PN ---
Subjective - Date & Time of Evaluation Date of Evaluation: 10/17/17 Time of Evaluation: 10:50 - Subjective Subjective: Left arm is feeling a little better, no nausea, no fevers, still feels the left arm is heavy. Has some loose stools but not watery. Objective - Vital Signs/Intake and Output Vital Signs (last 24 hours): Temp Pulse Resp BP Pulse Ox 99.7 F H 92 H 20 104/65 95 10/17/17 15:34 10/17/17 12:00 10/17/17 12:00 10/17/17 12:00 10/17/17 06:00 - Medications Medications: Current Medications Acetaminophen (Tylenol 325mg Tab) 975 mg PO ONCE PRN PRN Reason: Fever >100.4 F Last Admin: 10/15/17 16:44 Dose: 975 mg Acetaminophen (Tylenol 325mg Tab) 650 mg PO Q4H PRN PRN Reason: Temp > 99.9 Last Admin: 10/17/17 14:41 Dose: 650 mg Enoxaparin Sodium (Lovenox) 40 mg SC DAILY SANTOS PRN Reason: Protocol Last Admin: 10/17/17 12:27 Dose: 40 mg Linezolid (Zyvox 600mg/300ml D5w) 600 mg in 300 mls @ 200 mls/hr IVPB Q12 SANTOS PRN Reason: Protocol Stop: 10/22/17 11:11 Last Admin: 10/17/17 09:05 Dose: 200 mls/hr Sodium Chloride (Sodium Chloride 0.45%) 1,000 mls @ 30 mls/hr IV .Q24H [facility] Last Admin: 10/17/17 10:36 Dose: Not Given Meropenem (Merrem Iv 1 Gm Premix) 50 mls @ 100 mls/hr IVPB Q8 SANTOS PRN Reason: Protocol Stop: 10/25/17 22:01 Last Admin: 10/17/17 14:42 Dose: 100 mls/hr Clindamycin Phosphate 600 mg/ (Sodium Chloride) 54 mls @ 102 mls/hr IVPB Q8 SANTOS PRN Reason: Protocol Last Admin: 10/17/17 14:42 Dose: 102 mls/hr Ibuprofen (Motrin Tab) 400 mg PO Q6H PRN PRN Reason: Swelling Last Admin: 10/17/17 00:14 Dose: 400 mg Morphine Sulfate (Morphine) 1 mg IVP Q4H PRN PRN Reason: Pain, moderate (4-7) Last Admin: 10/17/17 06:34 Dose: 1 mg - Labs Labs: 10/17/17 06:30 10/17/17 06:30 PT 16.2 SECONDS (9.4-12.5) H 10/15/17 09:40 INR 1.40 (0.93-1.08) H 10/15/17 09:40 APTT 31.4 Seconds (25.1-36.5) 10/15/17 09:40 - Constitutional Appears: Non-toxic - Head Exam Head Exam: NORMAL INSPECTION - Neck Exam Neck Exam: absent: Meningismus - Respiratory Exam Respiratory Exam: Decreased Breath Sounds. absent: Rales - Cardiovascular Exam Cardiovascular Exam: +S1, +S2 - GI/Abdominal Exam GI & Abdominal Exam: Soft. absent: Tenderness Assessment and Plan - Assessment and Plan (Free Text) Plan: Assessment Severe sepsis with episode of hypotension due to severe left arm cellulitis, R/ O necrotizing fasciitis, so far growing Group A Strep obesity with BMI 36 Plan Continue Zyvox and Merrem day 2 and will add Clindamycin to add anti-toxin effect; follow up plan of Surgery - continue to monitor patient and see if patient improves - if he does not, may need debridement if diarrhea continues, will need to check stool for C. diff. HIV test is non-reactive
[2017-10-18] MEDS: Meropenem IV 1 gm in NS 50 ML IVPB SCH ×3 (05:12→21:21)
[2017-10-18 07:08] LABS: HEMOGLOBIN 13.8 g/dL (14.0-18.0); MEAN CELL VOLUME 87.2 fl (80.0-105.0); MEAN CORPUSCULAR HGB CONC 35.6 g/dl (31.0-37.0); MEAN PLATELET VOLUME 9.5 fl (7.0-11.0); RBC 4.45 10^6/uL (3.5-6.1); RED CELL DISTRIBUTION WIDTH 13.7 % (11.5-14.5); WHITE BLOOD COUNT 18.5 10^3/ul (4.5-11.0)
[2017-10-18 07:40] LABS: ALBUMIN 3.1 g/dL (3.0-4.8); ALT/SGPT 48 U/L (7-56); AST/SGOT 32 U/L (17-59); BLOOD UREA NITROGEN 13 mg/dL (7-21); CALCIUM 8.4 mg/dL (8.4-10.5); GFR AFRICAN-AMERICAN > 60; GFR NON-AFRICAN AMERICAN > 60
--- NOTE | 2017-10-18 07:49 | CP.PCM.PN ---
Subjective - Date & Time of Evaluation Date of Evaluation: 10/18/17 Time of Evaluation: 07:47 - Subjective Subjective: Patient seen and examined at bedside. Per nursing no acute events occurred overnight. Patient does report a fever overnight. Patient denies any chest pain , shortness of breath, fevers, chills, abdominal pain, or any other complaints. Objective - Vital Signs/Intake and Output Vital Signs (last 24 hours): Temp Pulse Resp BP Pulse Ox 98.5 F 92 H 20 104/65 95 10/17/17 23:23 10/17/17 12:00 10/17/17 12:00 10/17/17 12:00 10/17/17 06:00 Intake and Output: 10/18/17 10/18/17 06:59 18:59 Intake Total 1080 Balance 1080 - Medications Medications: Current Medications Acetaminophen (Tylenol 325mg Tab) 975 mg PO ONCE PRN PRN Reason: Fever >100.4 F Last Admin: 10/15/17 16:44 Dose: 975 mg Acetaminophen (Tylenol 325mg Tab) 650 mg PO Q4H PRN PRN Reason: Temp > 99.9 Last Admin: 10/17/17 21:35 Dose: 650 mg Enoxaparin Sodium (Lovenox) 40 mg SC DAILY SANTOS PRN Reason: Protocol Last Admin: 10/17/17 12:27 Dose: 40 mg Linezolid (Zyvox 600mg/300ml D5w) 600 mg in 300 mls @ 200 mls/hr IVPB Q12 SANTOS PRN Reason: Protocol Stop: 10/22/17 11:11 Last Admin: 10/17/17 21:26 Dose: 200 mls/hr Sodium Chloride (Sodium Chloride 0.45%) 1,000 mls @ 30 mls/hr IV .Q24H SANTOS Last Admin: 10/17/17 22:24 Dose: 30 mls/hr Meropenem (Merrem Iv 1 Gm Premix) 50 mls @ 100 mls/hr IVPB Q8 SANTOS PRN Reason: Protocol Stop: 10/25/17 22:01 Last Admin: 10/18/17 05:12 Dose: 100 mls/hr Clindamycin Phosphate 600 mg/ (Sodium Chloride) 54 mls @ 102 mls/hr IVPB Q8 SANTOS PRN Reason: Protocol Last Admin: 10/18/17 05:12 Dose: 102 mls/hr Ibuprofen (Motrin Tab) 400 mg PO Q6H PRN PRN Reason: Swelling Last Admin: 10/17/17 20:25 Dose: 400 mg Morphine Sulfate (Morphine) 1 mg IVP Q4H PRN PRN Reason: Pain, moderate (4-7) Last Admin: 10/17/17 06:34 Dose: 1 mg - Labs Labs: 10/18/17 06:30 10/18/17 06:30 PT 16.2 SECONDS (9.4-12.5) H 10/15/17 09:40 INR 1.40 (0.93-1.08) H 10/15/17 09:40 APTT 31.4 Seconds (25.1-36.5) 10/15/17 09:40 - Head Exam Head Exam: ATRAUMATIC, NORMAL INSPECTION, NORMOCEPHALIC - Eye Exam Eye Exam: EOMI Pupil Exam: NORMAL ACCOMODATION - ENT Exam ENT Exam: Mucous Membranes Moist - Respiratory Exam Respiratory Exam: Clear to Ausculation Bilateral, NORMAL BREATHING PATTERN - Cardiovascular Exam Cardiovascular Exam: REGULAR RHYTHM - GI/Abdominal Exam GI & Abdominal Exam: Soft, Normal Bowel Sounds - Neurological Exam Neurological Exam: Alert - Psychiatric Exam Psychiatric exam: Normal Affect, Normal Mood - Skin Skin Exam: Dry Additional comments: left arm erythema. No progression of cellulitis. blistering of left arm Assessment and Plan - Assessment and Plan (Free Text) Assessment: 42M with LUE cellulitis, possibly s/p spider bite; r/o nec fasc Plan: -Cont IV fluids -Cont IV antibiotics -Pain management -Will continue to monitor. Will discuss with Dr. Fitzpatrick.
[2017-10-18] MEDS ORDERED: Potassium Chloride 20 mEq ER Tab PO ONE (08:30)
--- NOTE | 2017-10-18 08:49 | PN ---
DATE: SUBJECTIVE: I saw him resting comfortably in his bed. His father is with him at bedside. He looks a little bit better today. The left arm looks better today. He can move it a little bit better and less pain, less aggressive read to the color of the left arm. Also, swelling is a bit better. MEDICATIONS: He is on clindamycin Lovenox, Merrem, morphine, Motrin, IV fluids, Tylenol and Zyvox. PHYSICAL EXAMINATION: VITAL SIGNS: He has a 98.5 temp, 92 pulse, 104/65 blood pressure, 20 respiratory rate, 95% O2 sat on room air. HEENT: His head is atraumatic, normocephalic. Throat is moist. NECK: Supple. HEART: Regular rate. LUNGS: Decreased breath sounds, but clear. ABDOMEN: Soft, obese, nontender. EXTREMITIES: No leg edema, but the left arm is still swollen and still red, but not as aggressive. He can move his hand a little bit better. He can move his elbow a little bit better. There is some line of blister across the antecubital fossa. I will put him on some Silvadene cream for that. LABORATORY DATA: He has lab tests. He has an 18.5 white count, it went up; 13.8 hemoglobin; 38.8 hematocrit with a 170 platelets. Although the white count went up, he does look better clinically. He has 139 sodium, potassium is 3.5. We will give him some potassium. BUN is 30, creatinine 0.7, GFR is greater than 60, sugar is 101, calcium is 8.4, total bili is 1.3, AST is 32, ALT is 48, alk phos 109, total protein 6.3. ASSESSMENT AND PLAN: Overall, doing better, being seen by Infectious Disease, Surgery, Orthopedics. We will continue aggressive treatment and care on IV antibiotics. I think this is the first day he is possibly turning the corner. He has severe sepsis. Continue aggressive treatment and care. Marcel Rosa DO
[2017-10-18] MEDS ORDERED: Iohexol 350 MG/100 ML VIAL ONE (09:02)
[2017-10-18] MEDS: Silver Sulfadiazine 1% Cream (25 gm) TP SCH ×2 (10:36→18:10)
[2017-10-18] MEDS: Linezolid 600 mg in D5W 300 ml 600 MG/300 ML BAG IVPB SCH ×2 (10:36→21:22)
[2017-10-18] MEDS: Enoxaparin 40 mg Syringe SC SCH (10:37)
[2017-10-18] MEDS ORDERED: Morphine 4 mg/ml ISec IVP PRN (11:33)
[2017-10-18] MEDS ORDERED: Iodixanol 320 MG/ML 100 ML BOTTLE IV ONE (13:45)
--- NOTE | 2017-10-18 16:13 | CT ---
PROCEDURE: CT of the left upper extremity. . HISTORY: Cellulitis COMPARISON: Comparison made with prior CT scan left upper extremity 10/16/2017 TECHNIQUE: Contiguous helical/transaxial sections of the left upper extremity obtained following intravenous injection of approximately 100 cc of Omnipaque 350 contrast material. . There was as necessary to repeat the examination due to poor patient positioning. Additional 2 dimensional sagittal and coronal reformats degenerated. Note that the portion of the upper extremity has been excluded from the study and therefore cannot be completely and adequately evaluated. This CT exam was performed using one or more of the following dose reduction techniques: Automated exposure control, adjustment of the mA and/or kV according to patient size, and/or use of iterative reconstruction technique. FINDINGS: BONES: The osseous structures appear intact. There are no focal obvious cortical destructive changes. LEFT HIP JOINT: Unremarkable. No dislocation. No degenerative changes. SOFT TISSUES: Interval mild improvement previously noted extensive subcutaneous inflammation/infiltration and edema within the soft tissues (cellulitis) of the upper extremity most pronounced along the distal aspect of the upper arm, elbowed region and forearm including swelling of the hand. No definitive drainable fluid collections are identified. No evidence of subcutaneous emphysema. . IMPRESSION: Persistent but mild improvement previously noted cellulitis involving the left upper extremity. There are no drainable fluid collections. No subcutaneous emphysema. No definitive cortical destructive changes are identified at this time.
--- NOTE | 2017-10-19 04:32 | PN ---
DATE: SUBJECTIVE: The patient is in bed, in no acute distress, was seen earlier this morning in room 564, bed 2. His father is sitting in chair next to bed. The patient states that the pain is improved, still having low-grade fevers. PHYSICAL EXAMINATION: VITAL SIGNS: Temperature is 101 and T-max was 103; blood pressure is 112/70, respiratory rate is 16. HEENT: Unremarkable. NECK: Supple. HEART: Normal S1 and S2. LUNGS: Have decreased breath sounds. ABDOMEN: Soft, nontender. LABORATORY DATA: Reveals a white count of 18,500. Chemistries are noted. On examination, the patient arm is somewhat improved although still significant erythema and edema. The patient does have group A Strep pyogenes in the arm culture. The patient had a repeat CAT scan of the arm, which revealed persistent mild improvement previously noted cellulitis involving left upper extremity, no drainage or fluid accumulation, no subcutaneous emphysema, no definitive changes. ASSESSMENT AND PLAN: This is a 42-year-old male who has severe sepsis with episode of hypertension and group A left arm cellulitis, rule out necrotizing fasciitis. I discussed the case with Dr. Alcon Fitzpatrick once again, currently on Zyvox and meropenem and clindamycin, and we will follow very closely, concerned about the persistence of fever and leukocytosis he has had some loose stools, we will send stool for Clostridium difficile. Patric Alves MD
[2017-10-19 07:12] LABS: HEMOGLOBIN 14.1 g/dL (14.0-18.0); MEAN CELL VOLUME 86.8 fl (80.0-105.0); MEAN CORPUSCULAR HEMOGLOBIN 31.1 pg (25.0-35.0); MEAN CORPUSCULAR HGB CONC 35.9 g/dl (31.0-37.0); MEAN PLATELET VOLUME 9.3 fl (7.0-11.0); RBC 4.53 10^6/uL (3.5-6.1); RED CELL DISTRIBUTION WIDTH 13.7 % (11.5-14.5); WHITE BLOOD COUNT 12.8 10^3/ul (4.5-11.0)
[2017-10-19] MEDS: Meropenem IV 1 gm in NS 50 ML IVPB SCH ×3 (07:14→21:15)
[2017-10-19 07:33] LABS: ALBUMIN 3.1 g/dL (3.0-4.8); ALT/SGPT 66 U/L (7-56); AST/SGOT 37 U/L (17-59); BLOOD UREA NITROGEN 12 mg/dL (7-21); CALCIUM 8.3 mg/dL (8.4-10.5); GFR AFRICAN-AMERICAN > 60; GFR NON-AFRICAN AMERICAN > 60
[2017-10-19] MEDS ORDERED: Vancomycin 25 MG/ML PO SCH (10:00)
[2017-10-19] MEDS: Enoxaparin 40 mg Syringe SC SCH (10:52)
[2017-10-19] MEDS: Silver Sulfadiazine 1% Cream (25 gm) TP SCH ×2 (10:52→17:39)
--- NOTE | 2017-10-19 11:13 | US ---
HISTORY: Leg pain and swelling. Evaluate for DVT PHYSICIAN(S): Yuri Dey MD. TECHNIQUE: Duplex sonography and color-flow Doppler with graded compression were used to evaluate the deep venous systems of both lower extremities. FINDINGS: The visualized deep venous systems of both lower extremities are sonographically normal and compressible. Normal wave forms and augmentation are seen. There is no sonographic evidence for deep venous thrombosis in the visualized segments of both lower extremities. IMPRESSION: No sonographic evidence for deep venous thrombosis in the visualized segments of both lower extremities.
[2017-10-19 11:17] LABS: PH,URINE 6.5 (4.7-8.0); URINE APPEARANCE CLEAR (CLEAR); URINE BILIRUBIN NEGATIVE (NEGATIVE); URINE BLOOD SMALL (NEGATIVE); URINE COLOR YELLOW (YELLOW); URINE GLUCOSE (UA) NEGATIVE (NEGATIVE); URINE LEUKOCYTE ESTERASE NEGATIVE Leu/uL (NEGATIVE); URINE PROTEIN TRACE mg/dL (<30 mg/dL); URINE UROBILINOGEN 0.2 E.U./dL (<1 E.U./dL)
[2017-10-19 11:20] LABS: URINE BACTERIA MOD (NEG); URINE WBC 0 - 2 /hpf (0-6)
--- NOTE | 2017-10-19 11:24 | RAD ---
HISTORY: Fever COMPARISON: Chest 10/15/2017. Comparison also made with CT chest 10/16/2017. TECHNIQUE: Chest PA and lateral FINDINGS: LUNGS: Slight increased bibasilar atelectasis of compared the prior exam. Questionable tiny bilateral effusions. PLEURA: As above. No pneumothorax apparent. CARDIOVASCULAR: Normal. OSSEOUS STRUCTURES: No significant abnormalities. VISUALIZED UPPER ABDOMEN: Normal. OTHER FINDINGS: None. IMPRESSION: Slight increased bibasilar atelectasis of compared the prior exam. Questionable tiny bilateral effusions.
--- NOTE | 2017-10-19 15:42 | CP.PCM.PN ---
Subjective - Date & Time of Evaluation Date of Evaluation: 10/19/17 Time of Evaluation: 06:41 - Subjective Subjective: Patient seen and examined at bedside. Per nursing no acute events occurred overnight. Patient denies any chest pain, abdominal pain, nausea, vomiting, fevers, chills, headache, or any other complaints Objective - Vital Signs/Intake and Output Vital Signs (last 24 hours): Temp Pulse Resp BP Pulse Ox 99.6 F 86 20 125/89 96 10/19/17 06:00 10/19/17 06:00 10/19/17 06:00 10/19/17 06:00 10/19/17 06:00 Intake and Output: 10/19/17 10/19/17 06:59 18:59 Intake Total 960 925 Balance 960 925 - Medications Medications: Current Medications Acetaminophen (Tylenol 325mg Tab) 975 mg PO ONCE PRN PRN Reason: Fever >100.4 F Last Admin: 10/15/17 16:44 Dose: 975 mg Acetaminophen (Tylenol 325mg Tab) 650 mg PO Q4H PRN PRN Reason: Temp > 99.9 Last Admin: 10/18/17 21:22 Dose: 650 mg Enoxaparin Sodium (Lovenox) 40 mg SC DAILY [facility] PRN Reason: Protocol Last Admin: 10/19/17 10:52 Dose: 40 mg Sodium Chloride (Sodium Chloride 0.45%) 1,000 mls @ 30 mls/hr IV .Q24H [facility] Last Admin: 10/17/17 22:24 Dose: 30 mls/hr Meropenem (Merrem Iv 1 Gm Premix) 50 mls @ 100 mls/hr IVPB Q8 [facility] PRN Reason: Protocol Stop: 10/25/17 22:01 Last Admin: 10/19/17 14:29 Dose: 100 mls/hr Ibuprofen (Motrin Tab) 400 mg PO Q6H PRN PRN Reason: Swelling Last Admin: 10/17/17 20:25 Dose: 400 mg Morphine Sulfate (Morphine) 1 mg IVP Q4H PRN PRN Reason: Pain, moderate (4-7) Silver Sulfadiazine (Silvadene 1% 25 Gm) 0 gm TP BID [facility] Last Admin: 10/19/17 10:52 Dose: 25 gm - Labs Labs: 10/19/17 06:45 10/19/17 06:45 PT 16.2 SECONDS (9.4-12.5) H 10/15/17 09:40 INR 1.40 (0.93-1.08) H 10/15/17 09:40 APTT 31.4 Seconds (25.1-36.5) 10/15/17 09:40 - Head Exam Head Exam: ATRAUMATIC, NORMAL INSPECTION - Eye Exam Eye Exam: EOMI, Normal appearance - Respiratory Exam Respiratory Exam: Clear to Ausculation Bilateral, NORMAL BREATHING PATTERN - Cardiovascular Exam Cardiovascular Exam: REGULAR RHYTHM - GI/Abdominal Exam GI & Abdominal Exam: Soft - Neurological Exam Neurological Exam: Alert, Awake - Skin Skin Exam: Intact Additional comments: left arm erythema. No progression of cellulitis. blistering of left arm Assessment and Plan - Assessment and Plan (Free Text) Assessment: 42M with LUE cellulitis, possibly s/p spider bite; r/o nec fasc Plan: -Cont IV fluids -Cont IV antibiotics -Pain management -Will continue to monitor. Will discuss
--- NOTE | 2017-10-19 15:51 | PN ---
DATE: 10/19/2017 SUBJECTIVE: I saw him resting comfortably in bed. He tells me he is feeling a little bit better with less pain, may be a little bit less swollen. The redness is also not as red, but it is still puffy and he wants to take a shower. He is getting out of bed everyday. He is eating alright. He is on IV fluids, potassium replacement, Lovenox, Merrem, morphine and Motrin. Silver sulfadiazine cream for the antecubital fossa blisters, which are improving, Tylenol and vancomycin p.o. PHYSICAL EXAMINATION VITAL SIGNS: He has a 103 temp last night, it is down to 99; 91 pulse, 120/77 blood pressure, 20 respiratory rate, 98% O2 sat on room air. HEENT: Head is atraumatic and normocephalic. HEART: Regular rate. LUNGS: Decreased breath sounds, but clear. ABDOMEN: Soft, obese, nontender. EXTREMITIES: The left arm is still puffy and the hand is not as swollen. The redness is a little bit less, it is fading and it is coming closer. The blisters in the antecubital fossa are less. He can move the arm better overall. I will continue aggressive treatment and care in that regard. He has a 12.8 white count, which is fantastic, it was 18 now it is down to 12; hemoglobin 14.1; hematocrit 39.3; platelets of 190. He has a 138 sodium, potassium 3.6, BUN 12, creatinine 0.8, GFR is greater than 60, sugar is 109, calcium is 8.3, total bili is 0.9, AST is 37, ALT is 56 , alkaline phosphatase 71, total protein is 6.2. I am happy with the white count coming down gratefully, that is fantastic. I will get him out of bed to chair. I will let him shower today. He had a repeat upper extremity CT scan, which showed mild improvement in cellulitis going in the right direction. He has a left arm cellulitis, severe sepsis. He is on Zyvox now with clindamycin. Check his stools for C. diff and we will check his labs and allow him to shower today. Hopefully, he will do well. He is slowly. Marcel Rosa DO [facility] # [id number]
--- NOTE | 2017-10-19 20:28 | PN ---
DATE: 10/19/2017 UPDATED REPORT LOCATION: Room 574, bed 2. SUBJECTIVE: Much improved since yesterday despite the fact he had 103 fever yesterday, but the swelling is down, pain is down, and the motion often feels
--- NOTE | 2017-10-19 21:21 | PN ---
DATE: Hood Pederson is seen in followup. I have been seeing him daily. The left arm is remarkably improved. The swelling in the hand is much better as is the range of motion and the tenderness. The wrist is almost normal. The elbow had some bubbles on the skin, but is being treated now with Silvadene. The cellulitis on the upper arm has resolved and it is pulling back from the previous recording. It is very little tender and much increased range of motion. Patient was seen today by Dr. Paulson who suggested continued treatment. Extremity ultrasound was unremarkable. Upper CAT scan yesterday showed resolution of the subcutaneous gas with no drainable infection, just cellulitis that seems to be somewhat improved. Continue with elevation, local care and Silvadene. Noting that there was a temperature yesterday of 103, it is now normal. The white count remarkably has remained normal, 5.6. I will continue to follow. Alcon Fitzpatrick MD
--- NOTE | 2017-10-20 03:09 | PN ---
DATE: 10/19/2017 SUBJECTIVE: The patient was seen early this morning. His arm has much improved, significantly left hand and is able to move his arm. He is ambulating. His father is at the bedside who states that the patient overall much improved. PHYSICAL EXAMINATION: VITAL SIGNS: The patient did have a temperature of 103 last night, this morning, it is 98, blood pressure 130/80, respiratory rate of 20. HEENT: Unremarkable. NECK: Supple. LUNGS: Have decreased breath sounds. HEART: Normal S1, S2. ABDOMEN: Soft, nontender. No organomegaly. No rebound. EXTREMITIES: Examination of arm is much improved erythema and tenderness. LABORATORY EXAMINATION: Reveals white count of 12,800, hemoglobin of 14, platelets of 190. Chemistries reveals BUN of 12, creatinine of 0.8 and patient did have an elevated procalcitonin of 16. Urinalysis is noted and serology is negative. Microbiology reveals a group A Strep in the arm and stool for C. diff is reported to be negative. ASSESSMENT AND PLAN: This is a 42-year-old male with severe sepsis with hypotension with a left arm group A cellulitis versus necrotizing fascitis, slowly improving. We will discontinue the clindamycin and Zyvox since patient's arm is improved and is having diarrhea with leukocytosis, is improving. We will continue meropenem for now and will make further recommendations. Patric Alves MD
[2017-10-20] MEDS: Meropenem IV 1 gm in NS 50 ML IVPB SCH ×3 (06:34→22:08)
--- NOTE | 2017-10-20 07:24 | CP.PCM.PN ---
Subjective - Date & Time of Evaluation Date of Evaluation: 10/20/17 Time of Evaluation: 07:21 - Subjective Subjective: Patient seen and examined at bedside. Per nursing no acute events occurred overnight. Patient reports feeling better today. Patient reports denies any drainage from the left arm, fevers, chills, nausea, vomiting, abdominal pain, headaches, or any other complaints. Objective - Vital Signs/Intake and Output Vital Signs (last 24 hours): Temp Pulse Resp BP Pulse Ox 98.4 F 82 20 130/87 98 10/19/17 14:00 10/19/17 14:00 10/19/17 14:00 10/19/17 14:00 10/19/17 14:00 Intake and Output: 10/20/17 10/20/17 06:59 18:59 Intake Total 540 Balance 540 - Medications Medications: Current Medications Acetaminophen (Tylenol 325mg Tab) 975 mg PO ONCE PRN PRN Reason: Fever >100.4 F Last Admin: 10/15/17 16:44 Dose: 975 mg Acetaminophen (Tylenol 325mg Tab) 650 mg PO Q4H PRN PRN Reason: Temp > 99.9 Last Admin: 10/18/17 21:22 Dose: 650 mg Enoxaparin Sodium (Lovenox) 40 mg SC DAILY [facility] PRN Reason: Protocol Last Admin: 10/19/17 10:52 Dose: 40 mg Sodium Chloride (Sodium Chloride 0.45%) 1,000 mls @ 30 mls/hr IV .Q24H [facility] Last Admin: 10/17/17 22:24 Dose: 30 mls/hr Meropenem (Merrem Iv 1 Gm Premix) 50 mls @ 100 mls/hr IVPB Q8 [facility] PRN Reason: Protocol Stop: 10/25/17 22:01 Last Admin: 10/20/17 06:34 Dose: 100 mls/hr Ibuprofen (Motrin Tab) 400 mg PO Q6H PRN PRN Reason: Swelling Last Admin: 10/19/17 17:48 Dose: 400 mg Morphine Sulfate (Morphine) 1 mg IVP Q4H PRN PRN Reason: Pain, moderate (4-7) Silver Sulfadiazine (Silvadene 1% 25 Gm) 0 gm TP BID [facility] Last Admin: 10/19/17 17:39 Dose: 25 gm - Labs Labs: 10/19/17 06:45 10/19/17 06:45 PT 16.2 SECONDS (9.4-12.5) H 10/15/17 09:40 INR 1.40 (0.93-1.08) H 10/15/17 09:40 APTT 31.4 Seconds (25.1-36.5) 10/15/17 09:40 - Head Exam Head Exam: ATRAUMATIC, NORMAL INSPECTION, NORMOCEPHALIC - Eye Exam Eye Exam: EOMI, Normal appearance - ENT Exam ENT Exam: Mucous Membranes Moist - Respiratory Exam Respiratory Exam: Clear to Ausculation Bilateral - Cardiovascular Exam Cardiovascular Exam: REGULAR RHYTHM - GI/Abdominal Exam GI & Abdominal Exam: Soft, Normal Bowel Sounds - Extremities Exam Extremities Exam: Full ROM - Back Exam Back Exam: NORMAL INSPECTION - Neurological Exam Neurological Exam: Alert, Awake, CN II-XII Intact - Psychiatric Exam Psychiatric exam: Normal Affect, Normal Mood - Skin Skin Exam: Dry, Intact Additional comments: left arm erythema. No progression of cellulitis. blistering of left arm Assessment and Plan - Assessment and Plan (Free Text) Assessment: 42M with LUE cellulitis, possibly s/p spider bite; r/o nec fasc Plan: -Cont IV fluids -Cont IV antibiotics -Pain management -Will continue to monitor. Will discuss Dr. Fitzpatrick
[2017-10-20 07:51] LABS: HEMOGLOBIN 13.9 g/dL (14.0-18.0); MEAN CELL VOLUME 86.9 fl (80.0-105.0); MEAN CORPUSCULAR HEMOGLOBIN 30.4 pg (25.0-35.0); MEAN PLATELET VOLUME 9.4 fl (7.0-11.0); RBC 4.57 10^6/uL (3.5-6.1); RED CELL DISTRIBUTION WIDTH 13.6 % (11.5-14.5)
[2017-10-20 08:17] LABS: ALBUMIN 3.1 g/dL (3.0-4.8); ALT/SGPT 89 U/L (7-56); AST/SGOT 59 U/L (17-59); BLOOD UREA NITROGEN 13 mg/dL (7-21); CALCIUM 8.1 mg/dL (8.4-10.5); GFR AFRICAN-AMERICAN > 60; GFR NON-AFRICAN AMERICAN > 60
[2017-10-20] MEDS: Sodium Chloride 0.45% 1,000 ML IV SCH (09:51)
[2017-10-20] MEDS: Enoxaparin 40 mg Syringe SC SCH (09:51)
[2017-10-20] MEDS: Silver Sulfadiazine 1% Cream (25 gm) TP SCH ×2 (09:52→18:39)
--- NOTE | 2017-10-20 15:17 | PN ---
DATE: SUBJECTIVE: I saw Hood resting comfortably, sitting out of bed to a chair. Family with him. He is walking better. He is eating better. His left arm is also a little bit less swollen, but still swollen, probably 40% better, less red. He can move the hand a little bit better. He had a rubber ball for his hand to start squeezing. MEDICATIONS: He is on Lovenox, Merrem IV, morphine, Motrin, Silvadene cream, IV fluids and Tylenol. PHYSICAL EXAMINATION: VITAL SIGNS: He has a 98.3 temperature, 73 pulse, 134/94 blood pressure, 18 respiratory rate, 98% O2 sat on room air. HEENT: Head is atraumatic, normocephalic. HEART: Regular rate. LUNGS: Clear to auscultation. ABDOMEN: Soft, nontender. Positive bowel sounds. Obese. EXTREMITIES: The feet, no edema, left arm is swollen, but not as bad, the redness is not as bad, less aggressive looking. LABORATORY DATA: He has a 10 white count, the best it has been, first time normal; 13.9 hemoglobin, 39.7 hematocrit, with 198 platelets. He has 140 sodium, potassium is 3.8, BUN 13, creatinine 0.6, GFR is greater than 60, sugar is 106, calcium is 8.1, total bili is 1.7, AST is 59, ALT is 89, alk phos is 58, total protein 6.1. HIV was nonreactive. ASSESSMENT AND PLAN: He had Streptococcus pyogenes and is being seen by multiple physicians, Infectious Disease, Surgery. He has severe sepsis with hypotension, which has now gone to hypertension. When I get the okay from Infectious Disease to change into tablets, we will discharge him, so that he can go back to [facility] where he is from, and keep an eye on his blood pressure. If it persistently maintains elevated, I will put him on something blood pressure that was high, and we will continue with aggressive treatment and care on Hood Affection for his severe cellulitis of left arm. Marcel Rosa DO MTDD
--- NOTE | 2017-10-21 00:12 | PN ---
DATE: 10/20/2017 SUBJECTIVE: Patient is in bed, in no acute distress, was seen early this morning. His arm is much improved. He has had low-grade fevers. PHYSICAL EXAMINATION: VITAL SIGNS: Temperature is 97, T-max was 100; blood pressure is 125/70; respiratory rate of 20. HEENT: Unremarkable. NECK: Supple. LUNGS: Have decreased breath sounds. HEART: Normal S1, S2. ABDOMEN: Soft, nontender. EXTREMITIES: Examination of arm, he has full function of his arm and his hand. He is able to make a fist. The edema less. The erythema is improved. LABORATORY EXAMINATION: Reveals white count is down to normal now at 10,000, hemoglobin of 13, platelets of 198 and the patient has coagulation is noted. Chemistries reveal the patient has a BUN of 13, creatinine of 0.6. Urinalysis is also noted and microbiology revealed body fluid with group A Strep. The patient's HIV is nonreactive. Review of order revels the patient to be on meropenem alone. ASSESSMENT AND PLAN: This is a 42-year-old male with severe sepsis, hypotension and left arm group A cellulitis, concerned about necrotizing fascitis, very slowly improving, currently now on meropenem with resolution of the leukocytosis and resolution of the diarrhea with the clostridium difficile negative and low-grade fevers if patient continuing to remain afebrile for 24 to 48 hours, may be able to switch to p.o. antibiotics. We will follow closely with you. He did have a low-grade fever, temp 100 notified by the nurses. Overall, greatly improved. Patric Alves MD
[2017-10-21] MEDS: Meropenem IV 1 gm in NS 50 ML IVPB SCH ×3 (06:09→21:35)
[2017-10-21 07:42] LABS: HEMOGLOBIN 15.5 g/dL (14.0-18.0); MEAN CELL VOLUME 87.2 fl (80.0-105.0); MEAN CORPUSCULAR HEMOGLOBIN 30.9 pg (25.0-35.0); MEAN CORPUSCULAR HGB CONC 35.5 g/dl (31.0-37.0); MEAN PLATELET VOLUME 9.1 fl (7.0-11.0); RBC 5.01 10^6/uL (3.5-6.1); RED CELL DISTRIBUTION WIDTH 13.6 % (11.5-14.5); WHITE BLOOD COUNT 12.7 10^3/ul (4.5-11.0)
[2017-10-21 07:57] LABS: ALBUMIN 3.4 g/dL (3.0-4.8); ALT/SGPT 104 U/L (7-56); AST/SGOT 51 U/L (17-59); BLOOD UREA NITROGEN 12 mg/dL (7-21); CALCIUM 8.6 mg/dL (8.4-10.5); GFR AFRICAN-AMERICAN > 60; GFR NON-AFRICAN AMERICAN > 60
[2017-10-21] MEDS: Silver Sulfadiazine 1% Cream (25 gm) TP SCH ×2 (09:51→17:22)
[2017-10-21] MEDS: Enoxaparin 40 mg Syringe SC SCH (09:51)
[2017-10-21] MEDS: Sodium Chloride 0.45% 1,000 ML IV SCH (09:51)
--- NOTE | 2017-10-21 14:20 | PN ---
DATE: SUBJECTIVE: I saw him resting comfortably, out of bed to chair. He is doing quite well. His left arm is much less swollen, much less red. He can move it more. He is on Lovenox, Merrem, Motrin, Norvasc, Silvadene, IV fluids, Tylenol, and Ultram. He is much happier too. PHYSICAL EXAMINATION: VITAL SIGNS: He has a 98.2 temperature, 59 pulse, 124/75 blood pressure, 18 respiratory rate, 98% O2 sat on room air. HEENT: Head is atraumatic, normocephalic. HEART: Regular rate. LUNGS: Clear to auscultation. ABDOMEN: Soft, obese, nontender. EXTREMITIES: No edema of the legs. The left arm is much less red, much less swollen; better movement. He is improving. LABORATORY DATA: He has a 12.7 white count, 15.5 hemoglobin, 43.7 hematocrit with 206 platelets. Sodium 141, potassium 4, BUN 12, creatinine 0.7. GFR is greater than 60, sugar is 107, calcium 8.6, total bili is 0.9, AST is 51, ALT is 104, alk phos 65, total protein 6.7. As per Infectious Disease, we are going to change him over to p.o. medications and discharge him. When I get the word, I will let him be discharged; until then, we will continue with aggressive treatment and care and he is definitely improving. IMPRESSION: Severe cellulitis of the left arm. Marcel Rosa DO
--- NOTE | 2017-10-21 20:57 | CP.PCM.PN ---
Subjective - Date & Time of Evaluation Date of Evaluation: 10/21/17 Time of Evaluation: 12:20 - Subjective Subjective: Left arm is feeling much better, no fevers, no diarrhea, no nausea or vomiting. Objective - Vital Signs/Intake and Output Vital Signs (last 24 hours): Temp Pulse Resp BP Pulse Ox 98.2 F 59 L 18 128/76 98 10/21/17 09:30 10/21/17 09:30 10/21/17 09:30 10/21/17 09:50 10/21/17 09:30 Intake and Output: 10/21/17 10/21/17 06:59 18:59 Intake Total 1320 Balance 1320 - Medications Medications: Current Medications Acetaminophen (Tylenol 325mg Tab) 975 mg PO ONCE PRN PRN Reason: Fever >100.4 F Last Admin: 10/15/17 16:44 Dose: 975 mg Acetaminophen (Tylenol 325mg Tab) 650 mg PO Q4H PRN PRN Reason: Temp > 99.9 Last Admin: 10/20/17 16:43 Dose: 650 mg Amlodipine Besylate (Norvasc) 2.5 mg PO DAILY [facility] Last Admin: 10/21/17 09:50 Dose: 2.5 mg Enoxaparin Sodium (Lovenox) 40 mg SC DAILY [facility] PRN Reason: Protocol Last Admin: 10/21/17 09:51 Dose: 40 mg Sodium Chloride (Sodium Chloride 0.45%) 1,000 mls @ 30 mls/hr IV .Q24H [facility] Last Admin: 10/21/17 09:51 Dose: 30 mls/hr Meropenem (Merrem Iv 1 Gm Premix) 50 mls @ 100 mls/hr IVPB Q8 [facility] PRN Reason: Protocol Stop: 10/25/17 22:01 Last Admin: 10/21/17 06:09 Dose: 100 mls/hr Ibuprofen (Motrin Tab) 400 mg PO Q6H PRN PRN Reason: Swelling Last Admin: 10/19/17 17:48 Dose: 400 mg Silver Sulfadiazine (Silvadene 1% 25 Gm) 0 gm TP BID [facility] Last Admin: 10/21/17 09:51 Dose: 25 gm Tramadol HCl (Ultram) 50 mg PO TID PRN PRN Reason: Pain, moderate (4-7) - Labs Labs: 10/21/17 07:15 10/21/17 07:15 PT 16.2 SECONDS (9.4-12.5) H 10/15/17 09:40 INR 1.40 (0.93-1.08) H 10/15/17 09:40 APTT 31.4 Seconds (25.1-36.5) 10/15/17 09:40 - Constitutional Appears: Chronically Ill - Head Exam Head Exam: NORMAL INSPECTION - ENT Exam ENT Exam: Mucous Membranes Moist - Neck Exam Neck Exam: absent: Meningismus - Respiratory Exam Respiratory Exam: Decreased Breath Sounds - Cardiovascular Exam Cardiovascular Exam: +S1, +S2 - GI/Abdominal Exam GI & Abdominal Exam: Soft, Tenderness - Extremities Exam Additional comments: left arm with decreased swelling and erythema Assessment and Plan - Assessment and Plan (Free Text) Plan: Assessment Severe sepsis with episode of hypotension due to severe left arm cellulitis, R/ O necrotizing fasciitis, growing Group A Strep, clinically improving obesity with BMI 36 Plan on Merrem day 6 - would recommend to complete 10-14 days of antibiotics and can be switched to PO antibiotics in the next 24 hours HIV test is non-reactive
[2017-10-22] MEDS: Meropenem IV 1 gm in NS 50 ML IVPB SCH ×2 (05:55→05:56)
[2017-10-22 07:50] LABS: HEMOGLOBIN 15.6 g/dL (14.0-18.0); MEAN CELL VOLUME 88.5 fl (80.0-105.0); MEAN CORPUSCULAR HGB CONC 35.1 g/dl (31.0-37.0); MEAN PLATELET VOLUME 9.2 fl (7.0-11.0); RBC 5.03 10^6/uL (3.5-6.1); RED CELL DISTRIBUTION WIDTH 13.5 % (11.5-14.5); WHITE BLOOD COUNT 11.2 10^3/ul (4.5-11.0)
--- NOTE | 2017-10-22 08:06 | CP.PCM.PN ---
Subjective - Date & Time of Evaluation Date of Evaluation: 10/22/17 Time of Evaluation: 08:04 - Subjective Subjective: General Surgery: Dr Fitzpatrick Pt S&E. OUMOU. Redness and swelling continue to improve. Denies any fevers, chills, nausea or vomiting. Increased ROM Objective - Vital Signs/Intake and Output Vital Signs (last 24 hours): Temp Pulse Resp BP Pulse Ox 98.4 F 80 18 138/84 98 10/21/17 14:00 10/21/17 14:00 10/21/17 14:00 10/21/17 14:00 10/21/17 14:00 Intake and Output: 10/22/17 10/22/17 06:59 18:59 Intake Total 1140 Balance 1140 - Medications Medications: Current Medications Acetaminophen (Tylenol 325mg Tab) 975 mg PO ONCE PRN PRN Reason: Fever >100.4 F Last Admin: 10/15/17 16:44 Dose: 975 mg Acetaminophen (Tylenol 325mg Tab) 650 mg PO Q4H PRN PRN Reason: Temp > 99.9 Last Admin: 10/20/17 16:43 Dose: 650 mg Amlodipine Besylate (Norvasc) 2.5 mg PO DAILY [facility] Last Admin: 10/21/17 09:50 Dose: 2.5 mg Enoxaparin Sodium (Lovenox) 40 mg SC DAILY [facility] PRN Reason: Protocol Last Admin: 10/21/17 09:51 Dose: 40 mg Sodium Chloride (Sodium Chloride 0.45%) 1,000 mls @ 30 mls/hr IV .Q24H [facility] Last Admin: 10/21/17 09:51 Dose: 30 mls/hr Meropenem (Merrem Iv 1 Gm Premix) 50 mls @ 100 mls/hr IVPB Q8 [facility] PRN Reason: Protocol Stop: 10/30/17 22:18 Last Admin: 10/22/17 05:56 Dose: 100 mls/hr Ibuprofen (Motrin Tab) 400 mg PO Q6H PRN PRN Reason: Swelling Last Admin: 10/19/17 17:48 Dose: 400 mg Silver Sulfadiazine (Silvadene 1% 25 Gm) 0 gm TP BID [facility] Last Admin: 10/21/17 17:22 Dose: 25 gm Tramadol HCl (Ultram) 50 mg PO TID PRN PRN Reason: Pain, moderate (4-7) - Labs Labs: 10/22/17 07:00 10/21/17 07:15 PT 16.2 SECONDS (9.4-12.5) H 10/15/17 09:40 INR 1.40 (0.93-1.08) H 10/15/17 09:40 APTT 31.4 Seconds (25.1-36.5) 10/15/17 09:40 - Constitutional Appears: Non-toxic, No Acute Distress - Head Exam Head Exam: NORMAL INSPECTION - ENT Exam ENT Exam: Mucous Membranes Dry - Respiratory Exam Respiratory Exam: absent: Accessory Muscle Use, Respiratory Distress - Cardiovascular Exam Cardiovascular Exam: REGULAR RHYTHM. absent: Tachycardia - GI/Abdominal Exam GI & Abdominal Exam: Soft. absent: Distended, Firm, Rigid, Tenderness - Extremities Exam Additional comments: erythema improved swelling improved minor blistering secondary to edema - Neurological Exam Neurological Exam: Alert, Awake, Oriented x3 - Psychiatric Exam Psychiatric exam: Normal Affect, Normal Mood - Skin Skin Exam: Normal Color, Warm Assessment and Plan - Assessment and Plan (Free Text) Assessment: 42M with left arm cellulitis presumably secondary to spider bite; resolving Plan: per ID pt can be transitioned to PO abx today once on PO abx pt is clear from surgical standpoint will cont to follow peripherally while pt in house d/w Dr Amari Rdz, PGY3
[2017-10-22 08:12] LABS: ALB/GLOB RATIO 0.9 (1.1-1.8); ALBUMIN 3.3 g/dL (3.0-4.8); ALT/SGPT 89 U/L (7-56); AST/SGOT 40 U/L (17-59); BLOOD UREA NITROGEN 13 mg/dL (7-21); CALCIUM 8.7 mg/dL (8.4-10.5); GFR AFRICAN-AMERICAN > 60; GFR NON-AFRICAN AMERICAN > 60
[2017-10-22 08:24] VITALS: RESP 20
--- NOTE | 2017-10-22 08:59 | PN ---
DATE: SUBJECTIVE: [place] very swollen and infected [place] arm. Last night was the first night he actually slept through the night. Now, he feels rested. MEDICATIONS: He is on IV fluids, Lovenox, Merrem IV, Motrin, Norvasc, Silvadene cream, Tylenol, tramadol. PHYSICAL EXAMINATION: VITAL SIGNS: He has 98.4 temp, 80 pulse, 138/84 blood pressure, 18 respiratory rate, 98% O2 sat on room air. HEENT: His head is atraumatic, normocephalic. HEART: Regular rate. LUNGS: Clear to auscultation. ABDOMEN: Soft, obese, nontender. EXTREMITIES: The lower extremities are okay. Left upper extremity is less swollen, less red. It is still under the arm and the triceps area is very swollen and hard. LABORATORY DATA: Waiting for labs to populate this morning, they are not back. Yesterday's labs, white count went up to 12.7, hopefully it comes down today. ASSESSMENT AND PLAN: Discussed with the Infectious Disease. We will see what the numbers look like. If he is doing better, he has got a shot at going back to [place] tomorrow with oral antibiotics. He is getting very close. We will check his labs tomorrow. Encourage him to get out of bed to chair. Discussed at length with Infectious Disease. Maybe one more day. Checking the labs are pending. Marcel Rosa DO
[2017-10-22] MEDS: Enoxaparin 40 mg Syringe SC SCH (09:46)
[2017-10-22] MEDS: Sodium Chloride 0.45% 1,000 ML IV SCH (09:49)
[2017-10-22] MEDS: Silver Sulfadiazine 1% Cream (25 gm) TP SCH ×2 (09:49→17:29)
[2017-10-22] MEDS: Amoxicillin-Clav 875-125 mg Tab PO SCH ×2 (12:00→21:22)
[2017-10-22 15:28] VITALS: TEMP 98.5; O2SAT 99
--- NOTE | 2017-10-22 18:11 | PN ---
DATE: Hood Affection is seen in the . His edema is rapidly resolving. The erythema has gone. The areas of blisters have gone. The motion is much better. The white count is down to 11. Afebrile. Now cleared by ID. I am happy to transfer to an oral antibiotic and let him go back to [place]. Alcon Fitzpatrick MD
--- NOTE | 2017-10-22 21:41 | PN ---
DATE: 10/22/2017 SUBJECTIVE: Patient was seen early this morning, doing much better. No fevers and chills. PHYSICAL EXAMINATION: VITAL SIGNS: Temperature is 98, blood pressure is 125/70, respiratory rate of 16. HEENT: Unremarkable. NECK: Supple. LUNGS: Have decreased breath sounds. HEART: Normal S1, S2. ABDOMEN: Soft, nontender. LABORATORY EXAMINATION: Reveals patient has a white count of 11,200. Chemistries are noted. The patient's arm is much improved. ASSESSMENT AND PLAN: This is a 42-year-old male from [place], who is admitted with severe sepsis, hypotension, left arm group A cellulitis and necrotizing fascitis was concerning, very slowly improving; however, finally he has improved, white count is improved. He is able to do full function of his arm and his hand. I will switch to p.o. Augmentin. The patient with possible discharge tomorrow. Patric Alves MD
[2017-10-23 08:08] LABS: HEMOGLOBIN 15.8 g/dL (14.0-18.0); MEAN CELL VOLUME 89.1 fl (80.0-105.0); MEAN CORPUSCULAR HEMOGLOBIN 30.8 pg (25.0-35.0); MEAN CORPUSCULAR HGB CONC 34.6 g/dl (31.0-37.0); MEAN PLATELET VOLUME 9.4 fl (7.0-11.0); RBC 5.13 10^6/uL (3.5-6.1); RED CELL DISTRIBUTION WIDTH 13.5 % (11.5-14.5); WHITE BLOOD COUNT 12.3 10^3/ul (4.5-11.0)
[2017-10-23 08:39] VITALS: BP 130/78; PULSE 96
[2017-10-23 08:42] LABS: ALBUMIN 3.7 g/dL (3.0-4.8); ALT/SGPT 86 U/L (7-56); AST/SGOT 38 U/L (17-59); BLOOD UREA NITROGEN 13 mg/dL (7-21); GFR AFRICAN-AMERICAN > 60; GFR NON-AFRICAN AMERICAN > 60
[2017-10-23] MEDS: Amoxicillin-Clav 875-125 mg Tab PO SCH (09:27)
[2017-10-23] MEDS: Enoxaparin 40 mg Syringe SC SCH (09:28)
[2017-10-23] MEDS: Silver Sulfadiazine 1% Cream (25 gm) TP SCH (10:25)
[2017-10-23] MEDS: Sodium Chloride 0.45% 1,000 ML IV SCH (10:25)
--- NOTE | 2017-10-23 15:17 | PN ---
DATE: 10/23/2017 SUBJECTIVE: The patient is in bed, in no acute distress, nontoxic. OBJECTIVE: VITAL SIGNS: On exam, temperature is 98, blood pressure is 130/70, respiratory rate 20, heart rate of 96. HEENT: Examination is unremarkable. NECK: Supple. LUNGS: Have decreased breath sounds. HEART: Normal S1, S2. ABDOMEN: Soft, nontender. No rebound, no guarding. EXTREMITIES: On examination of the arm, it is much improved. DATA: Laboratory examination reveals a white count of 12,300, hemoglobin of 15 and BUN of 13, creatinine of 0.3 and creatinine 0.8. Microbiology is noted. ASSESSMENT AND PLAN; This is a 42-year-old male from [place] who is admitted with severe sepsis with Group A strep, possibly necrotizing fasciitis and severe cellulitis involving the entire left arm and now, we will switch to p.o. Augmentin. The patient return [place], the patient is much improved. He has full function of his arm and overall, doing well. The patient was seen early this morning and the patient's father at the bedside Patric Alves MD
--- NOTE | 2017-10-24 06:20 | DS ---
HISTORY OF PRESENT ILLNESS: He is a nice young [place] man [place] who had a severe left arm cellulitis. He is finally capable of being discharged today back to the [facility]. I discussed this with Infectious Disease. He will be on Augmentin 875 twice a day, Motrin 400 as needed 3 times a day, Norvasc 2.5 for an elevated blood pressure, Silvadene cream blisters on his left arm that pop up. He has been doing well. He is walking around. Left arm moves better. Hands are not swollen. He is in good spirits. PHYSICAL EXAMINATION: VITAL SIGNS: He has 98.5 temperature, 96 pulse, 130/78 blood pressure, 20 respiratory rate, 99% O2 sat on room air. HEAD: Atraumatic, normocephalic. HEART: Regular rate. LUNGS: Clear to auscultation. ABDOMEN: Soft, obese, nontender. EXTREMITIES: The left arm is much less swollen, not less red, he can move it better. He is doing much better all over. LABORATORY DATA: He does have a 12.3 white count. I told him he needs to get the white count checked when he gets back to [place], continue with the antibiotics. He has a 15.8 hemoglobin, 45.7 hematocrit, with 262 platelets. I told him he has to rest his arm, do not lift any luggage with it, do not use it, just elevate it and take care of it. He has 138 sodium, potassium 4.3, BUN 13, creatinine 0.8, GFR greater than 60, sugar is 91, calcium is 9. Total bilirubin is 1, AST is 38, ALT is 86, alkaline phosphatase is 75, total protein is 7.5. ASSESSMENT AND PLAN: He should do very well. was nonreactive. I discussed this with Infectious Disease and he said he can be discharged. He was here for acute severe cellulitis of the left arm. Marcel Rosa DO MTDD
== END 2017-10-23 11:14 | disposition home or self-care (01) | DRG 872 ==
LOC: ED 07:43 → ERH 09:03 → 3RSO 11:02 → 5RNO 10-17 14:03
PROVIDERS: ADMIT Family Medicine; ATTEND Family Medicine
PROC: 0R9M3ZZ Drainage of Left Elbow Joint, Percutaneous Approach (ICD-10-PCS; principal; 2017-10-15)
DX: A41.9 Sepsis, unspecified organism (principal); L03.114 Cellulitis of left upper limb; T63.301A Toxic effect of unspecified spider venom, accidental (unintentional), initial encounter; E87.2 Acidosis; R65.20 Severe sepsis without septic shock; I10 Essential (primary) hypertension; E66.9 Obesity, unspecified; Z68.36 Body mass index [BMI] 36.0-36.9, adult